=== PATIENT | male | born 1945 | race Caucasian/White ===

== ENCOUNTER 2023-10-26 06:57 | Emergency (ER) | payer MEDICARE, BC, SELFPAY ==
[2023-10-26 07:02] VITALS: BMI 37.5
[2023-10-26 07:07] VITALS: BP 171/102
[2023-10-26 07:17] VITALS: BP 157/84
[2023-10-26 08:06] LABS: % Basophils 0.1 % (0-2); % Immature Granulocytes 0.5 % (0-0.5); % Lymphocytes 5.1 % (20.5-51.1); % Monocytes 2.4 % (1.7-9.3); % Neutrophils 91.9 % (42.2-75.2); Absolute Immature Granulocytes 0.1 10^3/uL (0-0.05); Absolute Lymphocytes 0.9 10^3/uL (1.2-3.4); Absolute Monocytes 0.4 10^3/uL (0.1-0.6); Absolute Neutrophils 15.6 10^3/uL (1.4-6.5); Hematocrit 41.3 % (39.0-52.0); Hemoglobin 13.6 g/dL (13.0-18.0); Mean Corp Hgb Conc. 32.9 g/dL (33.0-37.0); Mean Corpuscular Hgb 31.1 pg (27.0-31.0); Mean Corpuscular Volume 94.5 fL (80.0-94.0); Nucleated Red Blood Cells % 0 % (-); Platelet Count 209 10^3/uL (130-400); Red Blood Cell Count 4.37 10^6/uL (4.70-6.10)
--- NOTE | 2023-10-26 08:17 | ED.GENMED ---
History of Present Illness
<KHADRA Joyce Jr. Last Filed: 10/26/23 13:20>
General
Chief Complaint: Dizziness
Source: patient, ambulance crew and [facility]
Exam Limitations: none
Time Seen by Provider: 10/26/23 07:08
Nursing documentation reviewed up to this point in time: agreed with
History of Present Illness
History of Present Illness:
78-year-old male past medical history of CHF hypertension of lipidemia, COPD presenting to the emergency department today with concerns of lightheadedness this morning upon awakening. He claims that he felt lightheaded then he ate ice cream had
slight improvement but ended up calling EMS and presenting to the ER. Denies shortness of breath chest pain nausea vomiting numbness weakness.
Past History
<Mason Cooney Jr., PA-C - Last Filed: 10/26/23 13:20>
Past History
ED Past Medical History: CHF, HTN, Hypercholesterolemia, Other (DARRON) and Other (chronic bilateral LE edema)
ED Past Surgical History: Cardiac (carotid endarterectomies)
Social History
Tobacco: Former smoker
Alcohol: None
Drug: None
Personal: Single
Living: alone ([facility])
Review of Systems
<KHADRA Joyce Jr. Last Filed: 10/26/23 13:20>
Review of Systems
Allergies reviewed?: Yes
All Other Systems: ROS reviewed and negative except as documented in HPI and ROS
Phy Exam
<KHADRA Joyce Jr. Last Filed: 10/26/23 13:20>
Physical Exam
Physical Exam:
GENERAL: Alert , in no apparent distress
EYE: pupils equal and reactive
NECK: Supple, no significant adenopathy.
ENT: o/p clr, mmm.
CARDIAC: Regular rate and rhythm .
LUNGS: Clear breath sounds bilaterally, no acute respiratory distress, no wheezes/rales/rhonchi
ABDOMEN: Soft, without focal tenderness, no r/g, no cvat
NEUROLOGICAL: Alert and oriented, no focal neuro deficits
SKIN: Warm and dry, skin intact.
MUSCULOSKELETAL: No edema, well perfused.
PSYCH: Normal and appropriate interaction.
Course
<Mason Cooney Jr., PA-C - Last Filed: 10/26/23 13:20>
Orders/Labs/Results
Orders:
Orders
10/26/23 07:02
Electrocardiogram (*1) Urgent
Reason for Study: Chest Pain
EKG- Treatment ONCE
IV Insert/Care/Rem.- Treatment PRN
10/26/23 07:29
CT Head W/o Iv Contrast Urgent
Comment:
Reason For Exam: lfalling to the left this AM
Ondansetron Injectable [Zofran] 4 mg IV NOW STA
Chest [CR Chest - 2 Views ] Urgent
Comment:
Reason For Exam: lightheaded, SOB
10/26/23 07:53
Complete Blood Count/With Diff Urgent
10/26/23 08:34
Comprehensive Metabolic Panel Urgent
NT-proBNP Urgent
Comment: ADD ON
Troponin I Urgent
Urinalysis Reflex To Culture Urgent
Date Specimen was Collected: 10/26/23
Time Specimen was Collected: 08:09
10/26/23 09:18
Add On- LAB Urgent
Tests Added?: bnp
10/26/23 12:32
Blood Culture Urgent
LORENA Source: Blood/Venous
Specimen Description:
Abnormal Lab Results
10/26/23 10/26/23
07:53 08:34
WBC 17.0 H 10^3/uL
(4.8-10.8)
RBC 4.37 L 10^6/uL
(4.70-6.10)
MCV 94.5 H fL
(80.0-94.0)
MCH 31.1 H pg
(27.0-31.0)
MCHC 32.9 L g/dL
(33.0-37.0)
MPV 12.0 H fL
(7.4-10.4)
Abs Immat Gran (auto) 0.1 H 10^3/uL
(0-0.05)
Absolute Neuts (auto) 15.6 H 10^3/uL
(1.4-6.5)
Absolute Lymphs (auto) 0.9 L 10^3/uL
(1.2-3.4)
Neutrophils % 91.9 H %
(42.2-75.2)
Lymphocytes % 5.1 L %
(20.5-51.1)
Chloride 91 L mmol/L
(98-107)
Carbon Dioxide 39 H mmol/L
(22-30)
BUN 34 H mg/dl
(9-20)
Glucose 160 H mg/dl
(70-99)
10/26/23 07:53
10/26/23 08:34
Vital Signs
Initial and Last Documented VS:
Initial Vital Signs
Resp
16
10/26/23 07:02
Last Documented Vital Signs
Temp Pulse Resp BP Pulse Ox
97.6 F 80 21 133/87 98
10/26/23 07:07 10/26/23 12:30 10/26/23 07:45 10/26/23 12:01 10/26/23 13:00
<Gera Zapata, - Last Filed: 10/26/23 11:36>
Orders/Labs/Results
Orders:
Orders
10/26/23 07:02
Electrocardiogram (*1) Urgent
Reason for Study: Chest Pain
EKG- Treatment ONCE
IV Insert/Care/Rem.- Treatment PRN
10/26/23 07:29
CT Head W/o Iv Contrast Urgent
Comment:
Reason For Exam: lfalling to the left this AM
Ondansetron Injectable [Zofran] 4 mg IV NOW STA
Chest [CR Chest - 2 Views ] Urgent
Comment:
Reason For Exam: lightheaded, SOB
10/26/23 07:53
Complete Blood Count/With Diff Urgent
10/26/23 08:34
Comprehensive Metabolic Panel Urgent
NT-proBNP Urgent
Comment: ADD ON
Troponin I Urgent
Urinalysis Reflex To Culture Urgent
Date Specimen was Collected: 10/26/23
Time Specimen was Collected: 08:09
10/26/23 09:18
Add On- LAB Urgent
Tests Added?: bnp
10/26/23 12:32
Blood Culture Urgent
LORENA Source: Blood/Venous
Specimen Description:
Abnormal Lab Results
10/26/23 10/26/23
07:53 08:34
WBC 17.0 H 10^3/uL
(4.8-10.8)
RBC 4.37 L 10^6/uL
(4.70-6.10)
MCV 94.5 H fL
(80.0-94.0)
MCH 31.1 H pg
(27.0-31.0)
MCHC 32.9 L g/dL
(33.0-37.0)
MPV 12.0 H fL
(7.4-10.4)
Abs Immat Gran (auto) 0.1 H 10^3/uL
(0-0.05)
Absolute Neuts (auto) 15.6 H 10^3/uL
(1.4-6.5)
Absolute Lymphs (auto) 0.9 L 10^3/uL
(1.2-3.4)
Neutrophils % 91.9 H %
(42.2-75.2)
Lymphocytes % 5.1 L %
(20.5-51.1)
Chloride 91 L mmol/L
(98-107)
Carbon Dioxide 39 H mmol/L
(22-30)
BUN 34 H mg/dl
(9-20)
Glucose 160 H mg/dl
(70-99)
10/26/23 07:53
10/26/23 08:34
Vital Signs
Initial and Last Documented VS:
Initial Vital Signs
Resp
16
10/26/23 07:02
Last Documented Vital Signs
Temp Pulse Resp BP Pulse Ox
97.6 F 80 21 133/87 98
10/26/23 07:07 10/26/23 12:30 10/26/23 07:45 10/26/23 12:01 10/26/23 13:00
<Mason Cooney Jr., PA-C - Last Filed: 10/26/23 13:20>
MDM/Problems Addressed
MDM/Problems Addressed:
78-year-old male presenting to the emergency department today with concerns of lightheadedness upon awakening this morning. Never fully passed out no associated chest pain shortness of breath or palpitations. Upon arrival blood pressure is
elevated otherwise vital signs are normal. Patient is asymptomatic at rest. Here patient had a drink and did feel somewhat improved symptoms. Initial blood pressure was elevated but improved without specific treatment. Patient does of a white
count of 17 with no obvious specific symptoms. Blood culture was sent but otherwise patient appears stable for discharge. Otherwise troponin negative urinalysis normal head CT without emergent findings chest x-ray without emergent findings.
Patient given strict return precautions otherwise.
<Mason Cooney Jr., PA-C - Last Filed: 10/26/23 13:20>
*Critical Care Note
Total Time (30-74mins, 75-104mins- exclusive of procedures): Not Applicable
ED Attending Note
<Mason Cooney Jr. PAMelinda - Last Filed: 10/26/23 13:20>
-
Portions of this chart may have been created with voice recognition software.� Occasional wrong word or��sound alike� substitutions may have occurred due to the inherent limitations of voice recognition software.
<Gera Zapata DO - Last Filed: 10/26/23 11:36>
ED Attending Note
Patient seen and examined by attending physician: Yes
I performed the substantive portion of visit, reviewed & personally made and approve the management plan that is documented in note by myself or ZAINAB.: Yes
Discharge Plan
Departure
Patient Disposition: Home (Routine Discharge)
Date of Disposition: 10/26/23
Time of Disposition: 13:19
Patient with high blood pressure during this ER visit?: No
Condition: Good
Covid-19: Not Applicable
Discharge Problem:
Dizziness
Instructions: Dizziness, Nonvertigo, (DC)
Prescriptions:
No Action
multivitamin 1 EACH tablet
1 ea PO DAILY
furosemide 80 MG tablet
80 mg PO BID
cholecalciferol (vitamin D3) 1,000 UNITS tablet
1,000 units PO DAILY
Lumigan 1 DROP drops
1 drp BOTH EYES HS
cyclobenzaprine 10 mg Tablet
10 mg PO BID PRN (Reason: muscle spasms)
bupropion HCl 150 mg Tablet Sustained-Release 12 Hr
150 mg PO BID
pravastatin 40 mg Tablet
40 mg PO DAILY
duloxetine 60 mg Capsule,Delayed Release(Dr/Ec)
60 mg PO DAILY
docusate sodium 100 mg Capsule
100 mg PO BID Qty: 0 0RF
polyethylene glycol 3350 17 gram Powder In Packet
17 g PO DAILY Qty: 0 0RF
pantoprazole 40 mg Tablet,Delayed Release (Dr/Ec)
40 mg PO DAILY Qty: 30 0RF
Referrals:
Pedro Drew MD [Family Provider] -
Activity Restrictions/Additional Instructions:
You came to the emergency department today with concerns of lightheadedness and dizziness. Here you to reassuring assessment. Please follow closely with the primary care doctor. Return to the emergency department for any worsening, new or
concerning symptoms.
Interventions
Interventions:
*Risk Screen - Suicide Last Done: 10/26/23 07:02
*General Assessment Last Done: 10/26/23 07:02
*Neglect/Abuse Screening Last Done: 10/26/23 07:02
ED- Fall Risk Assessment Last Done: 10/26/23 07:02
*ED COVID-19 Vaccine History Last Done: 10/26/23 07:02
ED- Neurological Assessment Last Done: 10/26/23 07:02
Discharge Date and Time
Print Language: NIGERIEN
[2023-10-26 09:03] LABS: ALT (SGPT) 15 U/L (0-50); AST (SGOT) 24 U/L (17-59); Albumin 4.6 g/dl (3.5-5.0); Alkaline Phosphatase 76 U/L (38-126); Blood Urea Nitrogen 34 mg/dl (9-20); Calcium 9.3 mg/dl (8.4-10.2); Chloride 91 mmol/L (98-107); Estimated Creatinine Clearance 76 ml/min; Glucose 160 mg/dl (70-99); Potassium 3.8 mmol/L (3.5-5.1); Sodium 140 mmol/L (135-145); Total Bilirubin 0.4 mg/dl (0.2-1.3); Total Protein 7.2 g/dl (6.3-8.2); eGFR > 60.00
[2023-10-26 09:15] LABS: Troponin I 0.031 ng/ml
[2023-10-26 09:22] LABS: Urine Albumin Negative (Neg - Trace); Urine Bilirubin Negative (Negative); Urine Character Clear (Clear); Urine Color Yellow; Urine Glucose Negative (Negative); Urine Ketone Negative (Negative); Urine Leukocyte Negative (Negative); Urine Nitrite Negative (Negative); Urine Occult Blood Negative (Negative); Urine Specific Gravity 1.015 (<1.030); Urine Urobilinogen Negative (Neg - 1+)
[2023-10-26 09:37] LABS: Carbon Dioxide 39 mmol/L (22-30)
[2023-10-26 10:00] VITALS: BP 132/86
[2023-10-26 10:08] LABS: NT-proBNP 1050 pg/ml
[2023-10-26 10:25] VITALS: BP 142/68
[2023-10-26 11:00] VITALS: BP 129/59
[2023-10-26 12:01] VITALS: BP 133/87
== END 2023-10-26 13:34 | disposition home or self-care (01) ==
LOC: EMR 06:57
PROVIDERS: Physician Assistant; EMERGENCY PHYSICIAN Emergency Medicine; FAMILY PHYSICIAN Internal Medicine
DX: R42 Dizziness and giddiness (principal); I11.0 Hypertensive heart disease with heart failure; I50.9 Heart failure, unspecified; E78.00 Pure hypercholesterolemia, unspecified; J44.9 Chronic obstructive pulmonary disease, unspecified; G47.33 Obstructive sleep apnea (adult) (pediatric); Z87.891 Personal history of nicotine dependence
CPT/HCPCS: 99284; 70450; 71046; 80053; 81003; 83880; 84484; 85025; 87040; 93005

== ENCOUNTER 2023-11-30 16:34 | Emergency (ER) | payer MEDICARE, BC, SELFPAY ==
[2023-11-30 16:42] VITALS: BP 122/73
--- NOTE | 2023-11-30 17:08 | ED.GENMED ---
History of Present Illness
General
Chief Complaint: Weakness
Source: patient and other (good friend Connor who lives down the street at bedside providing some history)
Exam Limitations: none
Time Seen by Provider: 11/30/23 17:01
Nursing documentation reviewed up to this point in time: agreed with
History of Present Illness
History of Present Illness:
78 yo male with h/o COPD on home O2 2-3 L, CHF, HTN, HLD, GERD presents for 3 days of general weakness, fatigue, nausea, friend states 'he's been falling off to sleep a lot.' Pt denies CP or SOB. Denies abdominal pain. He denies feeling nauseous at
this time, he has had no vomiting. Dneies fever/chills. Has had no diarrhea past 2 days. Has occasional diarrhea
Saw PCP [employer] today and sent here for evaluation
Past History
Past History
ED Past Medical History: CHF, COPD, HTN, Hypercholesterolemia, Other (DARRON) and Other (chronic bilateral LE edema)
ED Past Surgical History: Cardiac (carotid endarterectomies) and Orthopedic
Social History
Tobacco: Former smoker
Alcohol: None
Drug: None
Personal: Single
Living: alone ([facility]. Living)
Review of Systems
Review of Systems
Allergies reviewed?: Yes
All Other Systems: ROS reviewed and negative except as documented in HPI and ROS
Constitutional: Reports fatigue; Denies fever
EENT: Denies sore throat
Respiratory: Denies cough or trouble breathing
Cardiac: Denies chest pain
ABD/GI: Reports nausea, diarrhea (occasional ) and anorexia; Denies abdominal pain, vomiting, bloody stools or black stools
: Denies dysuria, frequency, difficulty voiding or urgency
Musculoskeletal: Reports edema
Skin: Reports no symptoms
Neurological: Reports no symptoms
Phy Exam
Physical Exam
Physical Exam:
GENERAL: No acute distress. A&Ox3.
CONSTITUTIONAL: Afebrile.
EYES: PERRL, conjunctivae normal
ENMT: moist mucus membranes, Pharynx nl
RESPIRATORY: Regular respirations, nonlabored, lungs clear.
CARDIOVASCULAR: Regular rate and rhythm, no murmurs, no rubs.
GI: Soft, nontender, normal BS
MUSCULOSKELETAL: Moves with ease. Well perfused.
SKIN: Warm, dry, pale
PSYCH:Depressed mood and affect. Well kept, interactive and appropriate
NEUROLOGIC: Awake, alert and oriented. No focal neurological deficits
Course
Orders/Labs/Results
Orders:
Orders
11/30/23 16:46
Electrocardiogram (*1) Urgent
Reason for Study: Other
Other Reason for Exam: Respiratory Distress
EKG- Treatment ONCE
CR Chest - 2 Views Urgent
Comment:
Reason For Exam: respiratory distress
11/30/23 17:09
COVID-19 Antigen Urgent
Source: Nasal Swab
Influenza A+B Rapid Molecular Urgent
LORENA Source: Nasal Swab
Specimen Description:
11/30/23 17:16
Basic Metabolic Panel Urgent
Complete Blood Count/With Diff Urgent
NT-proBNP Urgent
Troponin I Urgent
11/30/23 18:30
Urinalysis Reflex To Culture Urgent
Date Specimen was Collected: 11/30/23
Time Specimen was Collected: 18:29
Abnormal Lab Results
11/30/23
17:16
RBC 4.05 L 10^6/uL
(4.70-6.10)
Hgb 12.3 L g/dL
(13.0-18.0)
Hct 38.7 L %
(39.0-52.0)
MCV 95.6 H fL
(80.0-94.0)
MCHC 31.8 L g/dL
(33.0-37.0)
MPV 11.0 H fL
(7.4-10.4)
Neutrophils % 76.3 H %
(42.2-75.2)
Lymphocytes % 15.1 L %
(20.5-51.1)
Chloride 86 L mmol/L
(98-107)
Carbon Dioxide 36 H mmol/L
(22-30)
Glucose 101 H mg/dl
(70-99)
11/30/23 17:16
11/30/23 17:16
Vital Signs
Initial and Last Documented VS:
Initial Vital Signs
Temp Pulse Resp BP Pulse Ox
97.7 F 73 16 122/73 96
11/30/23 16:42 11/30/23 16:42 11/30/23 16:42 11/30/23 16:42 11/30/23 16:42
Last Documented Vital Signs
Temp Pulse Resp BP Pulse Ox
97.7 F 84 22 119/89 96
11/30/23 16:42 11/30/23 18:15 11/30/23 18:15 11/30/23 18:25 11/30/23 18:15
MDM/Problems Addressed
Differential Diagnosis Includes:
Covid, dehydration, CHF, viral illness
MDM/Problems Addressed:
78 yo male with h/o COPD on home O2 2-3 L, CHF, HTN, HLD, GERD presents for 3 days of general weakness, fatigue, nausea, friend states 'he's been falling off to sleep a lot.' Pt denies CP or SOB. Denies abdominal pain. He denies feeling nauseous at
this time, he has had no vomiting. Dneies fever/chills. Has had no diarrhea past 2 days. Has occasional diarrhea
Saw PCP [employer] today and sent here for evaluation
VS normal. NAD
6:15 p.m.
CBC unremarkable.
CMP with no clinically significant abnormality
Chest x-ray radiology report read: IMPRESSION:
Cardiomegaly without associated pulmonary edema
Results discussed with patient, reassured nothing worrisome in w/u
Friend at bedside states he's much more animated than earlier
Pt states he is comfortable going home.
*Critical Care Note
Total Time (30-74mins, 75-104mins- exclusive of procedures): Not Applicable
ED Attending Note
-
Portions of this chart may have been created with voice recognition software.� Occasional wrong word or��sound alike� substitutions may have occurred due to the inherent limitations of voice recognition software.
Discharge Plan
Departure
Patient Disposition: Home (Routine Discharge)
Date of Disposition: 11/30/23
Time of Disposition: 18:22
Patient with high blood pressure during this ER visit?: No
Condition: Good
Discharge Problem:
Generalized weakness
Instructions: Generalized Weakness (DC)
Prescriptions:
No Action
multivitamin 1 EACH tablet
1 ea PO DAILY
furosemide 80 MG tablet
80 mg PO BID
cholecalciferol (vitamin D3) 1,000 UNITS tablet
1,000 units PO DAILY
Lumigan 1 DROP drops
1 drp BOTH EYES HS
cyclobenzaprine 10 mg Tablet
10 mg PO BID PRN (Reason: muscle spasms)
bupropion HCl 150 mg Tablet Sustained-Release 12 Hr
150 mg PO BID
pravastatin 40 mg Tablet
40 mg PO DAILY
duloxetine 60 mg Capsule,Delayed Release(Dr/Ec)
60 mg PO DAILY
docusate sodium 100 mg Capsule
100 mg PO BID Qty: 0 0RF
polyethylene glycol 3350 17 gram Powder In Packet
17 g PO DAILY Qty: 0 0RF
pantoprazole 40 mg Tablet,Delayed Release (Dr/Ec)
40 mg PO DAILY Qty: 30 0RF
Referrals:
Pedro Drew MD [Family Provider] - Follow up in 5-7 days
UNKNOWN - PT DOES,NOT KNOW [Unknown Provider] -
Activity Restrictions/Additional Instructions:
As we discussed, nothing worrisome in your workup here today.
You may simply have a viral illness that should pass within the next several days.
See your doctor next week for recheck if you are not a lot better by then
Interventions
Interventions:
*Risk Screen - Suicide Last Done: 11/30/23 16:42
*General Assessment Last Done: 11/30/23 17:01
*Neglect/Abuse Screening Last Done: 11/30/23 17:01
ED- Fall Risk Assessment Last Done: 11/30/23 18:37
*ED COVID-19 Vaccine History Last Done: 11/30/23 17:01
*Nursing Disposition Last Done: 11/30/23 18:37
ED- Cardiac Assessment Last Done: 11/30/23 17:02
ED- Neurological Assessment Last Done: 11/30/23 17:02
ED- Pulmonary Assessment Last Done: 11/30/23 17:02
Discharge Date and Time
Discharge Date/Time: 11/30/23 18:37
Print Language: COMORAN
[2023-11-30 17:42] LABS: % Basophils 0.2 % (0-2); % Eosinophils 1.4 % (0-6); % Immature Granulocytes 0.4 % (0-0.5); % Lymphocytes 15.1 % (20.5-51.1); % Monocytes 6.6 % (1.7-9.3); % Neutrophils 76.3 % (42.2-75.2); Absolute Eosinophils 0.1 10^3/uL (0-0.7); Absolute Lymphocytes 1.3 10^3/uL (1.2-3.4); Absolute Monocytes 0.6 10^3/uL (0.1-0.6); Absolute Neutrophils 6.4 10^3/uL (1.4-6.5); Hematocrit 38.7 % (39.0-52.0); Hemoglobin 12.3 g/dL (13.0-18.0); Mean Corp Hgb Conc. 31.8 g/dL (33.0-37.0); Mean Corpuscular Hgb 30.4 pg (27.0-31.0); Mean Corpuscular Volume 95.6 fL (80.0-94.0); Nucleated Red Blood Cells % 0 % (-); Platelet Count 154 10^3/uL (130-400); Red Blood Cell Count 4.05 10^6/uL (4.70-6.10); Red Cell Dist. Width 12.7 % (11.5-14.5); White Blood Cell Count 8.3 10^3/uL (4.8-10.8)
[2023-11-30 17:46] LABS: COVID-19 Antigen Negative (Negative)
[2023-11-30 17:49] LABS: Blood Urea Nitrogen 16 mg/dl (9-20); Calcium 8.9 mg/dl (8.4-10.2); Chloride 86 mmol/L (98-107); Glucose 101 mg/dl (70-99); NT-proBNP 996 pg/ml; Sodium 136 mmol/L (135-145); Troponin I 0.016 ng/ml; eGFR > 60.00
[2023-11-30 17:55] LABS: Carbon Dioxide 36 mmol/L (22-30)
[2023-11-30 18:25] VITALS: BP 119/89
[2023-11-30 18:39] LABS: Urine Albumin Negative (Neg - Trace); Urine Bilirubin Negative (Negative); Urine Character Clear (Clear); Urine Color Yellow; Urine Glucose Negative (Negative); Urine Ketone Negative (Negative); Urine Leukocyte Negative (Negative); Urine Nitrite Negative (Negative); Urine Occult Blood Negative (Negative); Urine Urobilinogen Negative (Neg - 1+)
== END 2023-11-30 18:37 | disposition home or self-care (01) ==
LOC: EMR 16:34
PROVIDERS: Emergency Medicine; Registered Nurse; EMERGENCY PHYSICIAN Emergency Medicine; FAMILY PHYSICIAN Internal Medicine
DX: R53.1 Weakness (principal); J44.9 Chronic obstructive pulmonary disease, unspecified; I11.0 Hypertensive heart disease with heart failure; I50.9 Heart failure, unspecified; E78.00 Pure hypercholesterolemia, unspecified; G47.33 Obstructive sleep apnea (adult) (pediatric); K21.9 Gastro-esophageal reflux disease without esophagitis; Z87.891 Personal history of nicotine dependence; Z99.81 Dependence on supplemental oxygen
CPT/HCPCS: 99283; 71046; 80048; 81003; 83880; 84484; 85025; 87502; 87811; 93005

== ENCOUNTER 2024-01-19 22:08 | Inpatient (IN) | payer MEDICARE, BC, SELFPAY ==
[2024-01-19] VITALS (8 sets, daily range): BP systolic 122–163; BP diastolic 63–97; BMI 39.0; BMI 38.5
--- NOTE | 2024-01-19 19:13 | ED.GENMED ---
History of Present Illness
General
Chief Complaint: Chest Pain
Source: patient and ambulance crew
Exam Limitations: none
Time Seen by Provider: 01/19/24 19:13
Nursing documentation reviewed up to this point in time: agreed with
History of Present Illness
History of Present Illness:
Patient with history of oxygen dependent COPD, presents to emergency department secondary to multiple episodes of lightheadedness associated with near syncope, when he stood up from sitting position this evening. Denies loss of consciousness.
Denies falling down. Denies any injuries. Denies headache. Denies preceding palpitations or shortness of breath. Denies nausea or vomiting. Patient states that he has had number of similar episodes in the past, but does not know why. In
addition, patient states that his legs are more swollen than usual, despite switching his diuretic from Lasix to Bumex. Patient also is currently being treated for left lower leg infection, and was started on clindamycin yesterday. Denies fever or
chills. Patient has had previous skin infection, treated with antibiotics. Lastly, patient states that he did experienced choking/chest pain while he was eating, which resolved shortly afterwards, as his food finally went down to his stomach.
Past History
Past History
ED Past Medical History: CHF, COPD, HTN, Hypercholesterolemia, Other (DARRON) and Other (chronic bilateral LE edema)
ED Past Surgical History: Cardiac (carotid endarterectomies) and Orthopedic
Social History
Tobacco: Former smoker
Alcohol: None
Drug: None
Personal: Single
Living: alone ([facility])
Review of Systems
Review of Systems
Allergies reviewed?: Yes
All Other Systems: ROS reviewed and negative except as documented in HPI and ROS
Constitutional: Reports no symptoms
EENT: Reports no symptoms
Respiratory: Reports no symptoms; Denies trouble breathing
Cardiac: Reports no symptoms; Denies chest pain, diaphoresis or palpitations
ABD/GI: Reports no symptoms; Denies abdominal pain, nausea or vomiting
: Reports no symptoms
Musculoskeletal: Reports edema
Skin: Reports other (Leg redness with swelling)
Neurological: Reports no symptoms
Phy Exam
Physical Exam
Physical Exam:
Physical Exam
General: mild distress, not acutely ill. obese. afebrile
Head: nc/at. eomi
Neck: supple. no meningeal signs.
Heart: s1/s2 regular rate and rhythm, no murmur. equal radial pulses.
Lungs: no acute respiratory distress. diminished breath sounds bilaterally
Abdomen: normal bowel sounds. not tender.
Neuro: alert and oriented. no focal neurological deficits
Skin: no rash
Psychiatric: well kept. interactive and cooperative
Extremities: LE b/l edema. LLE erythema noted with mild warmth, without open drainage
Scores
Heart Score for Chest Pain Patients
STEMI patient?: Not applicable
Course
Orders/Labs/Results
Orders:
Orders
01/19/24 Lunch
Cholesterol Lowering
At Your Request: Full Participation
Does patient need a safe tray?: No
Fluid Restriction: 1440 mL/day (48 oz)
Cholesterol Lowering: Sodium, 2 Gram
01/19/24 19:06
Electrocardiogram (*1) Urgent
Reason for Study: Chest Pain
EKG- Treatment ONCE
01/19/24 19:27
BNP [NT-proBNP] Urgent
Complete Blood Count/With Diff Urgent
Comprehensive Metabolic Panel Urgent
Troponin I Urgent
01/19/24 19:42
CR Chest - 2 Views Urgent
Comment:
Reason For Exam: sob/swelling/hypoxia
US Legs, Left [US Periph Venous LOWER Ext LT] Urgent
Comment:
Reason For Exam: LLE swelling/erythema
01/19/24 20:47
Furosemide [Lasix] 60 mg IV NOW STA
01/19/24 21:13
Vancomycin [Vancocin] 2,000 mg 0.9% Sodium Chloride 500 ml [Nss] 500 ml IV NOW
01/19/24 21:37
CeFAZolin 2 GRAM [Ancef] 2 grams in 10 ml IV NOW
01/19/24 21:46
Admit/Transfer Patient As Directed
Co-Sign Provider:
Level of Care: Inpatient admission
Assign to:: Telemetry
Physician / Group: Milagros Lacy
Diagnosis: LLE Cellulitis, Heart Failure
Reason for Telemetry: Pulmonary Edema
Date to Stop Telemetry: 01/22/24
Time to Stop Telemetry: 11:00
Reason for Hospitalization: LLE Cellulitis, Heart Failure
Expected length of stay greater than two midnights?: Yes
ELOS- Estimated Length of Stay in days: 3
I certify the patient meets the requirements for IP care: Yes
PRN Pain Medication Management As Directed
May give lesser potent ordered pain med per pt: Yes
preference::
Protocol:: Medication orders for pain may be administered in a
manner that supports deferring to patient preference
when the pt is:
- Requesting an ordered lesser potent pain medication.
Least to most potent pain medications are defined
as: acetaminophen < NSAID < tramadol < opioids
(morphine, oxycodone, hydromorphone).
- Requesting a lesser dose of the same medication IF
ORDERED.
- Requesting a less intrusive route of administration
if both routes are prescribed by the provider (PO <
IV).
01/19/24 21:49
Code Status As Directed
Resuscitation Status: Do not resuscitate
Reached after discussion with pt or family/Healthcare POA: Yes
01/19/24 21:50
DNR Bracelet Application ONCE
01/19/24 22:38
Acetaminophen [Tylenol] 1,000 mg PO HS
Bupropion Regular Release [Wellbutrin Regular Release] 100 mg PO BID
Enoxaparin Sodium [Lovenox] 40 mg SC QPM
01/19/24 22:38
HF DIETARY CONSULT Routine
HF EDUCATOR CONSULT Routine
Comment:
Activity As Directed
Activity Level: As Tolerated
Intake/ Output As Directed
Frequency: Per unit guidelines
Orthostatic Vital Signs As Directed
Orthostatic VS Frequency: Daily
Patient Education As Directed
Type: CHF folder
Comment: give on admission. Document in Interdisciplinary Education record
Sleep Apnea Assessment by RN As Directed
Comment:
Physician Instructions:
Vital Signs As Directed
Frequency: Other
Additional Instructions:: Q12 or per unit guidelines if more frequent.
Weight As Directed
Frequency: Daily
Type of Scale: Standing Scale
Comment: Daily morning weight. If unable to stand, use balanced bed scale.
Weight As Directed
Frequency: Once
Type of Scale: Standing Scale
Comment: Upon Admission. If unable to stand, use balanced bed scale.
Pulse Ox/cont/shift [RESP] Routine
Quantity: 1
Special Instructions: Daily pulse oximetry at rest. If greater than 92% at rest also obtain pulse oximetry
while ambulating as tolerated.
OT Consult [Ot Eval And Treat] Routine
Ot Eval And Treat Routine
Physical Therapy Consult [Pt Eval And Treat] Routine
Activity Level: As Tolerated
Pt Eval And Treat Routine
Activity Level: As Tolerated
DX Deep Vein Thrombosis Video Routine
01/20/24 05:00
CeFAZolin 2 GRAM [Ancef] 2 grams in 10 ml IV Q8H
01/20/24 06:00
Echo 2D MMode Doppler [Echo 2D MMode Color/Doppler] IN AM
Reason for Study: heart failure
Basic Metabolic Panel IN AM
Complete Blood Count/No Diff IN AM
Magnesium IN AM
TSH Reflex To Free T4 IN AM
01/20/24 08:00
Duloxetine Delayed Release [Cymbalta Delayed Release] 20 mg PO DAILY
Furosemide [Lasix] 60 mg IV BID AT 0800,1600
Rosuvastatin Calcium [Crestor] 20 mg PO DAILY
Tiotropium [place] 2.5 Mcg [Spiriva Respimat 2.5 Mcg] 2 puff INH R DAILY
01/21/24 06:00
Basic Metabolic Panel IN AM
01/22/24 06:00
Basic Metabolic Panel IN AM
01/22/24 11:00
DC Protocol for Telemetry ONCE
Abnormal Lab Results
01/19/24
19:27
RBC 4.38 L 10^6/uL
(4.70-6.10)
MCV 99.3 H fL
(80.0-94.0)
MCHC 30.6 L g/dL
(33.0-37.0)
MPV 10.8 H fL
(7.4-10.4)
Absolute Neuts (auto) 7.1 H 10^3/uL
(1.4-6.5)
Absolute Monos (auto) 0.7 H 10^3/uL
(0.1-0.6)
Lymphocytes % 15.2 L %
(20.5-51.1)
Chloride 83 L mmol/L
(98-107)
Carbon Dioxide 39 H mmol/L
(22-30)
BUN 22 H mg/dl
(9-20)
Glucose 119 H mg/dl
(70-99)
01/19/24 19:27
01/19/24 19:27
Vital Signs
Initial and Last Documented VS:
Initial Vital Signs
Temp Pulse Resp BP Pulse Ox
98.2 F 102 20 159/63 98
01/19/24 19:01 01/19/24 19:01 01/19/24 19:01 01/19/24 19:01 01/19/24 19:01
Last Documented Vital Signs
Temp Pulse Resp BP Pulse Ox
97.9 F 98 18 150/89 94
01/19/24 23:13 01/19/24 23:13 01/19/24 23:13 01/19/24 23:13 01/19/24 23:13
MDM/Problems Addressed
MDM/Problems Addressed:
History and exam consistent with likely left lower leg cellulitis, along with significant fluid retention, despite outpatient diuretics. Ultrasound without any evidence of DVT. Patient will be admitted for IV antibiotics and IV diuretics.
Presyncopal episodes, likely multifactorial, including immobility as well as degree of orthostasis.
*EKG
Interpreted by ED Provider?: Yes
EKG Intrepretation Date: 01/19/24
Heart Rate: 94
Rate: normal
Rhythm: sinus and PVC's
QRS Pattern: right bundle branch block
*Critical Care Note
Total Time (30-74mins, 75-104mins- exclusive of procedures): Not Applicable
ED Attending Note
-
Portions of this chart may have been created with voice recognition software.� Occasional wrong word or��sound alike� substitutions may have occurred due to the inherent limitations of voice recognition software.
Discharge Plan
Departure
Patient Disposition: Admit
Date of Disposition: 01/19/24
Time of Disposition: 20:47
Admit to: Telemetry
Presentation/result/management discussed w/ accepting MD/DO: Hospitalist
Discharge Problem:
Near syncope, Cellulitis, Fluid overload
Interventions
Interventions:
*Risk Screen - Suicide Last Done: 01/19/24 23:24
*General Assessment Last Done: 01/19/24 19:15
*Neglect/Abuse Screening Last Done: 01/19/24 19:16
*ED COVID-19 Vaccine History Last Done: 01/19/24 23:24
*Nursing Disposition Last Done: 01/19/24 22:33
ED- Cardiac Assessment Last Done: 01/19/24 19:30
Discharge Date and Time
Discharge Date/Time: 01/19/24 22:33
[2024-01-19 19:33] LABS: % Basophils 0.4 % (0-2); % Eosinophils 1.8 % (0-6); % Immature Granulocytes 0.3 % (0-0.5); % Lymphocytes 15.2 % (20.5-51.1); % Monocytes 7.1 % (1.7-9.3); % Neutrophils 75.2 % (42.2-75.2); Absolute Eosinophils 0.2 10^3/uL (0-0.7); Absolute Lymphocytes 1.4 10^3/uL (1.2-3.4); Absolute Monocytes 0.7 10^3/uL (0.1-0.6); Absolute Neutrophils 7.1 10^3/uL (1.4-6.5); Hematocrit 43.5 % (39.0-52.0); Hemoglobin 13.3 g/dL (13.0-18.0); Mean Corp Hgb Conc. 30.6 g/dL (33.0-37.0); Mean Corpuscular Hgb 30.4 pg (27.0-31.0); Mean Corpuscular Volume 99.3 fL (80.0-94.0); Mean Platelet Volume 10.8 fL (7.4-10.4); Nucleated Red Blood Cells % 0 % (-); Platelet Count 153 10^3/uL (130-400); Red Blood Cell Count 4.38 10^6/uL (4.70-6.10); Red Cell Dist. Width 13.7 % (11.5-14.5); White Blood Cell Count 9.4 10^3/uL (4.8-10.8)
[2024-01-19 19:54] LABS: NT-proBNP 1360 pg/ml; Troponin I 0.026 ng/ml
[2024-01-19 19:57] LABS: ALT (SGPT) 16 U/L (0-50); AST (SGOT) 36 U/L (17-59); Albumin 4.8 g/dl (3.5-5.0); Alkaline Phosphatase 73 U/L (38-126); Blood Urea Nitrogen 22 mg/dl (9-20); Chloride 83 mmol/L (98-107); Estimated Creatinine Clearance 75 ml/min; Glucose 119 mg/dl (70-99); Potassium 4.5 mmol/L (3.5-5.1); Sodium 141 mmol/L (135-145); Total Bilirubin 0.8 mg/dl (0.2-1.3); Total Protein 7.9 g/dl (6.3-8.2); eGFR > 60.00
[2024-01-19 20:00] LABS: Carbon Dioxide 39 mmol/L (22-30)
--- NOTE | 2024-01-19 21:03 | HPS.HSE ---
Family Physician
-
Family Physician: Pedro Drew
Chief Complaint
-
near syncope
History of Present Illness
Mr. Pedro Mota is a 78 yo man with hx HTN, obesity, DARRON, COPD with chronic respiratory failure on 3L, HLD, HFpEF, GERD, Anxiety, carotis stenosis s/p bilateral CEA presents to the ER with multiple episodes of lightheadedness when going from
a seated to standing position this evening.
Patient reports getting up twice and feeling dizzy, having to sit down. He is concerned because his lower extremities feel very swollen and heavy. His left leg is erythematous and he was started on Clindamycin for it yesterday. He was also
transitioned from Lasix to Bumex yesterday.
No fevers/chills. No chest pain or shortness of breath. No abdominal pain. No nausea/vomiting.
Patient lives at home alone and gets around with a walker.
Medical History
Past Medical History
Past Medical History: Reports COPD (Ex-smoker, hypercarbia chronic), GERD (esophagitis ), HTN, Hypercholesterolemia, Psychiatric (anxiety ) and Other (chronic back pain , carotid stenosis , glaucoma, fibromyalgia)
Past Surgical History: Reports Other (Carotid stenosis-bilateral CEA)
Social History
Tobacco: Former Smoker
Alcohol: None
Drug: None
Personal: Single
Living: Other ([facility] 1 bedroom apartment in building )
Family History
Family History: Not pertinent
Allergies / Home Medications
Allergies reflects when Allergies were last updated in [facility].
Home Medications with original date entered in [facility]
Allergy/Medication List:
Allergies
Allergy/AdvReac Type Severity Reaction Status Date / Time
aspirin Allergy Rash Verified 01/19/24 19:14
ciprofloxacin [From Cipro] Allergy Rash Verified 01/19/24 19:14
ciprofloxacin HCl Allergy Rash Verified 01/19/24 19:14
[From Cipro]
gabapentin Allergy Hives Verified 01/19/24 19:14
Penicillins Allergy Rash Verified 01/19/24 19:14
Sulfa (Sulfonamide Allergy Unknown Verified 01/19/24 19:14
Antibiotics)
Home Medications
cholecalciferol (vitamin D3) 25 mcg (1,000 unit) tablet 1,000 units PO DAILY Supplement 07/10/16
acetaminophen 500 mg tablet (Tylenol Extra Strength) 1,000 mg PO HS 01/19/24
bumetanide 2 mg tablet 2 mg PO BID 01/19/24
bupropion HCl 100 mg tablet 100 mg PO BID 01/19/24
duloxetine 20 mg capsule,delayed release 20 mg PO DAILY 01/19/24
rosuvastatin 20 mg tablet 20 mg PO DAILY 01/19/24
therapeutic multivitamin 1 tab PO DAILY 01/19/24
umeclidinium 62.5 mcg-vilanterol 25 mcg/actuation powdr for inhalation (Anoro Ellipta) 1 inh inhalation R DAILY 01/19/24
Review of Systems
-
History Source: Patient
A 12 point ROS was completed and negative except as noted: Yes
Physical Exam
Vital Signs
Vital Signs
Temp Pulse Resp BP Pulse Ox
98.2 F 89 26 159/63 98
01/19/24 19:01 01/19/24 19:30 01/19/24 19:30 01/19/24 19:01 01/19/24 19:30
Physical Exam
General: No Apparent Distress and Conversant
HEENT: PERRLA
Respiratory: Clear; No Wheezes
Cardiac: S1/S2 and Regular Rhythm
GI: Soft and Non Tender
Musculoskeletal: Other (significant bilateral LE edema with area of erythema and warmth on left medial faustin )
Skin: Warm and Dry; No Rash
Neuro: AO x 3
Psych: Calm
Laboratory Results
-
01/19/24 19:27
01/19/24 19:27
Laboratory Results
Total Bilirubin 0.8 mg/dl (0.2-1.3) 01/19/24 19:27
AST 36 U/L (17-59) 01/19/24 19:
ALT 16 U/L (0-50) 01/19/24 19:27
Alkaline Phosphatase 73 U/L (38-126) 01/19/24 19:
Troponin I 0.026 ng/ml 01/19/24 19:
Data Reviewed
-
Diagnostic Radiology: Report Reviewed by me
Lab Data: Labs Reviewed by me
Impression/Plan
-
Mr. Pedro Mota is a 78 yo man with hx HTN, obesity, DARRON, COPD with chronic respiratory failure on 3L, HLD, HFpEF, GERD, Anxiety, carotid stenosis s/p bilateral CEA presents to the ER with multiple episodes of lightheadedness when going from
a seated to standing position this evening. He was started on antibiotics for LLE cellulitis yesterday and is found to be volume overloaded on exam.
Triage VS: T 98.2, P 102, RR 20, BP 159/63, SpO2 98%
LABS: WBC 9.4, Hg 13.1, PLT 153, Na 141, K+ 4.5, Cl 83, CO2 39, BUN 22, Cr 0.9, Glucose 119
LE US:
IMPRESSION: No evidence of deep venous thrombosis of the left lower extremity.
CXR
IMPRESSION:
Limited study with extremely low lung volumes.
Pulmonary vascularity at least top normal. Cannot exclude mild CHF versus acute pulmonary edema.
Mild bibasilar opacity most likely representing subsegmental atelectasis. Cannot exclude left lower lobe pneumonia.
MAR: IV Vancomycin and Lasix 60mg IV x 1
Pre-Syncope
Orthostasis
-patient clearly volume overloaded on exam and currently hypertensive
-treat other issues as below
-obtain orthostats in AM, consider midodrine
-PT/OT
Lower Extremity Swelling
Heart Failure preserved EF Acute Exacerbation
-TTE 07/28 with EF 60-65%
-s/p Lasix 60mg IV in the ER, will continue BID
-patient was recently changed from Lasix to Bumex oral as outpatient
-strict I/O, daily weights
-repeat echo
COPD
Chronic Hypoxic Respiratory Failure
-SENIOR SYSTEMS ADMINISTRATOR inhalers
Hyperlipidemia
-SENIOR SYSTEMS ADMINISTRATOR statin
Anxiety/Depression
-SENIOR SYSTEMS ADMINISTRATOR Bupropion BID, Duloxetine
GERD
Carotid Stenosis s/p bilateral CEA
-patient states he is allergic to aspirin, he was on Plavix in past - he'll need to clarify with his PCP
-SENIOR SYSTEMS ADMINISTRATOR statin
Obesity
DARRON
DVT PPx lovenox subQ
DNR - discussed on admission
76 minutes spent on patient care
[2024-01-19] MEDS: LASIX 60 MG IV (21:47)
[2024-01-19] MEDS: ANCEF 10 IV (22:06)
--- NOTE | 2024-01-19 23:00 | PTCARENOTE ---
Pt arrived to room 425-01. Pt transferred from stretcher to bed. Pt AAOx3, VSS. Pt on 4L NC. Pt oriented to room, call jerome placed within reach.
[2024-01-19] MEDS: LOVENOX 40 MG SC (23:35)
[2024-01-19] MEDS: TYLENOL 1000 MG PO (23:35)
[2024-01-19] MEDS: WELLBUTRIN REGULAR RELEASE 100 MG PO (23:35)
[2024-01-20] VITALS (8 sets, daily range): BP systolic 106–144; BP diastolic 58–72; PULSE 80–88; O2SAT 94–95; BMI 37.9
[2024-01-20] MEDS: MELATONIN 5 MG PO (00:51)
[2024-01-20] MEDS: ANCEF 10 IV ×3 (04:39→21:05)
--- NOTE | 2024-01-20 07:19 | W.PN.HOSP.TC ---
Today's Communication/Plan
-
Continue IV diuresis
Monitor on tele
Cardiology consulted
Assessment / Plan
Assessment / Plan
Physical Exam
General: Not in acute distress
HEENT: Normocephalic
Respiratory: Clear; No Wheezes
Cardiac: S1/S2 and Regular Rhythm
GI: Soft and Non Tender. Positive bowel sounds.
Musculoskeletal: Other (significant bilateral LE edema with area of erythema and warmth on left medial faustin )
Skin: Warm and Dry; No Rash
Neuro: AO x 3
Psych: Calm
Assessment/Plan
Mr. Pedro Mota is a 78 yo man with hx HTN, obesity, DARRON, COPD with chronic respiratory failure on 3L, HLD, HFpEF, GERD, Anxiety, carotid stenosis s/p bilateral CEA presents to the ER with multiple episodes of lightheadedness when going from
a seated to standing position this evening. He was started on antibiotics for LLE cellulitis yesterday and is found to be volume overloaded on exam.
Triage VS: T 98.2, P 102, RR 20, BP 159/63, SpO2 98%
LABS: WBC 9.4, Hg 13.1, PLT 153, Na 141, K+ 4.5, Cl 83, CO2 39, BUN 22, Cr 0.9, Glucose 119
LE US:
IMPRESSION: No evidence of deep venous thrombosis of the left lower extremity.
CXR
IMPRESSION:
Limited study with extremely low lung volumes.
Pulmonary vascularity at least top normal. Cannot exclude mild CHF versus acute pulmonary edema.
Mild bibasilar opacity most likely representing subsegmental atelectasis. Cannot exclude left lower lobe pneumonia.
MAR: IV Vancomycin and Lasix 60mg IV x 1
Pre-Syncope
Orthostasis
-Possibly from reduced EF CHF, seems like EF has dramatically dropped since last one
-patient clearly volume overloaded on exam and currently hypertensive
-treat other issues as below
-Continue monitoring orthostatic vital signs, consider midodrine
-PT/OT
Lower Extremity Swelling
Heart Failure with reduced ejection fraction Acute Exacerbation
-TTE 07/28 with EF 60-65%
-s/p Lasix 60mg IV in the ER, continue BID
-patient was recently changed from Lasix to Bumex oral as outpatient
-strict I/O, daily weights
-repeat echo shows EF in the 20% range
-cardiology consulted, appreciate their evaluation and recommendations
COPD
Chronic Hypoxic Respiratory Failure
-CREDIT CARD ANALYST inhalers
Hyperlipidemia
-CREDIT CARD ANALYST statin
Anxiety/Depression
-CREDIT CARD ANALYST Bupropion BID, Duloxetine
GERD
Carotid Stenosis s/p bilateral CEA
-patient states he is allergic to aspirin, he was on Plavix in past - he'll need to clarify with his PCP
-CREDIT CARD ANALYST statin
Obesity
DARRON
DVT PPx lovenox subQ
DNR - discussed on admission
Anticipated Discharge: > 48 hours
Subjective/Interval History
-
Date of Service: January 20, 2024
Patient was seen and examined. No new significant complaints except chronic pain and some cough.
Objective Data
-
Labs:
Laboratory Results
01/19/24 01/20/24
19:27 06:59
WBC 9.4 Pending
Hgb 13.3 Pending
Hct 43.5 Pending
Plt Count 153 Pending
Sodium 141 Pending
Potassium 4.5 Pending
Chloride 83 L Pending
Carbon Dioxide 39 H Pending
BUN 22 H Pending
Creatinine 0.9 Pending
Glucose 119 H Pending
Calcium 9.0 Pending
Total Bilirubin 0.8
AST 36
ALT 16
Alkaline Phosphatase 73
Vital Signs:
Vital Signs
Temp Pulse Resp BP Pulse Ox
98.4 F 84 18 113/60 93
01/20/24 03:29 01/20/24 03:29 01/20/24 03:29 01/20/24 03:29 01/20/24 03:29
I&O
01/19/24 01/20/24 01/21/24
06:59 06:59 06:59
Output Total 1025 / 1025
Balance -1025 / -1025
[2024-01-20 07:39] LABS: Hematocrit 41.9 % (39.0-52.0); Hemoglobin 13.2 g/dL (13.0-18.0); Mean Corp Hgb Conc. 31.5 g/dL (33.0-37.0); Mean Corpuscular Hgb 31.7 pg (27.0-31.0); Mean Corpuscular Volume 100.7 fL (80.0-94.0); Mean Platelet Volume 11.7 fL (7.4-10.4); Platelet Count 167 10^3/uL (130-400); Red Blood Cell Count 4.16 10^6/uL (4.70-6.10); Red Cell Dist. Width 13.4 % (11.5-14.5); White Blood Cell Count 9.7 10^3/uL (4.8-10.8)
[2024-01-20] MEDS: STRIVERDI RESPIMAT INH (08:29)
[2024-01-20] MEDS: SPIRIVA RESPIMAT 2.5 MCG INH (08:29)
--- NOTE | 2024-01-20 08:30 | CARDSERVLU ---
Echocardiogram with [facility] completed after protocol screening completed. Allergies verified.
Patent IV site: ___Rt FA__
IV site flushed with 0.9% NaCl pre and post administration.
Diluted bolus method utilized to enhance visualization of ventricular garg.
Total volume given: ___3ml_ mL
Patient tolerated all procedures well without complications.
[2024-01-20] MEDS: CRESTOR 20 MG PO (09:13)
[2024-01-20] MEDS: LASIX 60 MG IV ×2 (09:14→17:53)
[2024-01-20] MEDS: CYMBALTA DELAYED RELEASE 20 MG PO (09:14)
[2024-01-20 09:15] LABS: Blood Urea Nitrogen 20 mg/dl (9-20); Calcium 8.7 mg/dl (8.4-10.2); Chloride 86 mmol/L (98-107); Estimated Creatinine Clearance 73 ml/min; Glucose 100 mg/dl (70-99); Magnesium 2.3 mg/dl (1.6-2.3); Potassium 3.5 mmol/L (3.5-5.1); Sodium 144 mmol/L (135-145); eGFR > 60.00
[2024-01-20 09:43] LABS: TSH Reflex To Free T4 2.39 uIU/ml (0.47-4.68)
[2024-01-20 09:48] LABS: Carbon Dioxide 39 mmol/L (22-30)
[2024-01-20] MEDS: WELLBUTRIN REGULAR RELEASE 100 MG PO ×2 (09:55→21:05)
--- NOTE | 2024-01-20 11:34 | CM ---
CM reviewed chart, patient seen bedside. Patient resides at [facility], currently receiving therapy from [facility]. Patient uses a walker for ambulation, reports history of SNF, would like to return home with therapy rather than SNF. Patient
confirms PCP Pedro Drew, pharmacy [facility], confirms prescription coverage. Patient reports he has meals provided to him at [facility], room is cleaned weekly. Patient has home O2 through [facility]. Will fax clinicals to [facility]
[phone]. CM will continue to follow for all discharge planning needs.
Plan; return to [facility] with [facility]
[2024-01-20] MEDS: TYLENOL 1000 MG PO ×2 (14:38→21:05)
[2024-01-20] MEDS: LOVENOX 40 MG SC (17:53)
[2024-01-20] MEDS: HYDROPHOR 1 APPLIC TOPICAL (21:04)
[2024-01-21 03:36] VITALS: BP 122/66
[2024-01-21] MEDS: TYLENOL 1000 MG PO ×3 (05:05→20:53)
[2024-01-21] MEDS: ANCEF 10 IV ×3 (05:05→20:54)
[2024-01-21 06:00] VITALS: BMI 38.0
[2024-01-21 07:00] VITALS: BP 129/64
[2024-01-21 07:34] LABS: Blood Urea Nitrogen 20 mg/dl (9-20); Calcium 8.5 mg/dl (8.4-10.2); Chloride 82 mmol/L (98-107); Estimated Creatinine Clearance 74 ml/min; Glucose 100 mg/dl (70-99); Potassium 3.4 mmol/L (3.5-5.1); Sodium 143 mmol/L (135-145); eGFR > 60.00
[2024-01-21] MEDS: SPIRIVA RESPIMAT 2.5 MCG 2 PUFF INH (07:37)
[2024-01-21] MEDS: STRIVERDI RESPIMAT 2 PUFF INH (07:38)
[2024-01-21 07:54] LABS: Carbon Dioxide 45 mmol/L (22-30)
[2024-01-21] MEDS: CYMBALTA DELAYED RELEASE 20 MG PO (08:58)
[2024-01-21] MEDS: CRESTOR 20 MG PO (08:58)
[2024-01-21] MEDS: WELLBUTRIN REGULAR RELEASE 100 MG PO ×2 (08:58→20:54)
[2024-01-21] MEDS: KCL 40 MEQ PO (08:58)
[2024-01-21] MEDS: HYDROPHOR 1 APPLIC TOPICAL ×2 (08:59→20:54)
[2024-01-21] MEDS: LASIX 60 MG IV ×2 (09:01→16:38)
[2024-01-21 11:00] VITALS: BP 127/63; BP 135/68; BP 139/67; PULSE 68; PULSE 72; PULSE 76
--- NOTE | 2024-01-21 14:42 | W.PN.HOSP.TC ---
Today's Communication/Plan
-
Continue IV Diuresis
Appreciate cardiology
Assessment / Plan
Assessment / Plan
Physical Exam
General: Not in acute distress
HEENT: Normocephalic
Respiratory: Clear; No Wheezes
Cardiac: S1/S2 and Regular Rhythm
GI: Soft and Non Tender. Positive bowel sounds.
Musculoskeletal: Other (significant bilateral LE edema with area of erythema and warmth on left medial faustin )
Skin: Warm and Dry; No Rash
Neuro: AO x 3
Psych: Calm
Assessment/Plan
Mr. Pedro Mota is a 78 yo man with hx HTN, obesity, DARRON, COPD with chronic respiratory failure on 3L, HLD, HFpEF, GERD, Anxiety, carotid stenosis s/p bilateral CEA presents to the ER with multiple episodes of lightheadedness when going from
a seated to standing position this evening. He was started on antibiotics for LLE cellulitis yesterday and is found to be volume overloaded on exam.
Triage VS: T 98.2, P 102, RR 20, BP 159/63, SpO2 98%
LABS: WBC 9.4, Hg 13.1, PLT 153, Na 141, K+ 4.5, Cl 83, CO2 39, BUN 22, Cr 0.9, Glucose 119
LE US:
IMPRESSION: No evidence of deep venous thrombosis of the left lower extremity.
CXR
IMPRESSION:
Limited study with extremely low lung volumes.
Pulmonary vascularity at least top normal. Cannot exclude mild CHF versus acute pulmonary edema.
Mild bibasilar opacity most likely representing subsegmental atelectasis. Cannot exclude left lower lobe pneumonia.
MAR: IV Vancomycin and Lasix 60mg IV x 1
Pre-Syncope
Orthostasis
-Possibly from reduced EF CHF, seems like EF has dramatically dropped since last one
-patient clearly volume overloaded on exam and currently hypertensive
-treat other issues as below
-Continue monitoring orthostatic vital signs, consider midodrine
-PT/OT
Lower Extremity Swelling
Heart Failure with reduced ejection fraction Acute Exacerbation
-TTE 07/28 with EF 60-65%
-s/p Lasix 60mg IV in the ER, continue BID
-patient was recently changed from Lasix to Bumex oral as outpatient
-strict I/O, daily weights
-repeat echo shows EF in the 20% range
-cardiology consulted, appreciate their evaluation and recommendations
COPD
Chronic Hypoxic Respiratory Failure
-CAN FEEDER inhalers
Hyperlipidemia
-CAN FEEDER statin
Anxiety/Depression
-CAN FEEDER Bupropion BID, Duloxetine
GERD
Carotid Stenosis s/p bilateral CEA
-patient states he is allergic to aspirin, he was on Plavix in past - he'll need to clarify with his PCP
-CAN FEEDER statin
Obesity
DARRON
DVT PPx lovenox subQ
DNR - discussed on admission
Anticipated Discharge: 24 - 48 hours
Subjective/Interval History
-
Date of Service: January 21, 2024
Patient was seen and examined. He denied any chest pain, SOB or any other complaints.
Objective Data
-
Labs:
Laboratory Results
01/21/24
06:29
Sodium 143
Potassium 3.4 L
Chloride 82 L
Carbon Dioxide 45 H
BUN 20
Creatinine 0.9
Glucose 100 H
Calcium 8.5
Vital Signs:
Vital Signs
Temp Pulse Resp BP Pulse Ox
97.8 F 68 20 135/68 97
01/21/24 11:00 01/21/24 11:00 01/21/24 11:00 01/21/24 11:00 01/21/24 11:00
I&O
01/20/24 01/21/24 01/22/24
06:59 06:59 06:59
Intake Total 120 / 120
Output Total 1025 / 1025 850 / 850
Balance -1025 / -1025 -730 / -730
[2024-01-21 15:00] VITALS: BP 114/60
--- NOTE | 2024-01-21 15:02 | W.PN.CD ---
Today's Communication / Plan
-
Consult dictated
We may need to progress to R and L cardiac cath when cellulitis stable to better understand L/R filling pressures
An ABG may be helpful here as well
Volume status challenging to determine, suspect volume overloaded
- IV diuresis given his peripheral edema
Extent of lung disease uncertain
- Baseline ABG may be helpful
Case management c/s for coverage cost for ARNI/SGLT2-I
Med adjustment
Impression / Plan
-
Presents to the ER with episodes of orthostatic lightheadedness, increased diuretic use, LE erythema
Dizziness
- Recent adjustment of diuretics
- Mostly orthostatic
- Watch tele
- Check orthostatic vitals are mildly + but not dramatic
Contracture alkalosis
Bifascicular block
- RBBB/LAFB
- Watch on tele
Suspected cellulitis
Suspected acute on chronic HFr, LVEF 20-25%
- Contracture alkalosis with O2 requiring COPD on diuretic with persistent edema
- CXR has low lung volume but concerning for heart failure
- Watch with diuresis
- Cautious med adjustment perhaps best to await clarification of volume status, just Lasix for now
- later hope all GDMT (HF BB, RAAS-I [arni or pascual-i, or arb], MRA, SGLT-I)
HTN
PAD: carotid endarterectomy
Chronic LE edema
- Perhaps not all from heart failure
COPD, oxygen at home
Spine stenosis
Knee DJD
hx obstructive sleep apnea
hx GERD
Fibromyalgia
Subjective:
Says legs are better, less swollen
Data:
Echo 01/20/2024: LVEF 20-25%, top normal in size, mild LVH, global LV hypo, RV normal size/fxn, mild MR, PASP could not be estimated, IVC not seen, decline in LVEF is new from 2017
Physical Exam
Vital Signs/Labs
Vital Signs
Temp Pulse Resp BP Pulse Ox
97.8 F 68 20 135/68 97
01/21/24 11:00 01/21/24 11:00 01/21/24 11:00 01/21/24 11:00 01/21/24 11:00
01/20/24 01/21/24 01/22/24
06:59 06:59 06:59
Actual Weight 99.972 kg 100.442 kg
01/20/24 06:59
Magnesium 2.3 mg/dl (1.6-2.3) 01/20/24 06:59
01/19/24
19:27
Lyg-U-Glzmckgppyk Pept 1360
LAB Results
01/19/24
19:27
Troponin I 0.026
Data Reviewed
-
Date of Service: January 21, 2024
--- NOTE | 2024-01-21 15:42 | PTCARENOTE ---
pt with episode of heart rate to 150. bp 14/60. asymptomatic. states he was attempting to stand up. Dr Dominguez from Cardiology aware and stated it looked like a burst of atrial tachycardia. if persists pt to have a 12 lead EKG
[2024-01-21 16:43] LABS: B.E. 23.4 mmol/L; O2 Saturation % 98.1 % (94-98); PO2 81 mmHg (83-108); pH 7.38 (7.35-7.45)
[2024-01-21 16:46] LABS: PCO2 90 mmHg (35-48)
[2024-01-21 16:47] LABS: HCO3 53.2 mmol/L (21-28)
[2024-01-21] MEDS: LOVENOX 40 MG SC (17:29)
[2024-01-21 19:00] VITALS: BP 135/76
[2024-01-21 21:42] LABS: Blood Urea Nitrogen 18 mg/dl (9-20); Calcium 8.2 mg/dl (8.4-10.2); Chloride 82 mmol/L (98-107); Estimated Creatinine Clearance 74 ml/min; Glucose 113 mg/dl (70-99); Magnesium 2.1 mg/dl (1.6-2.3); Potassium 3.9 mmol/L (3.5-5.1); Sodium 141 mmol/L (135-145); eGFR > 60.00
[2024-01-21 22:03] LABS: Carbon Dioxide 49 mmol/L (22-30)
[2024-01-21 23:00] VITALS: BP 121/54
[2024-01-22] VITALS (7 sets, daily range): BP systolic 93–139; BP diastolic 49–75; PULSE 3; BMI 37.5
[2024-01-22] MEDS: ANCEF 10 IV ×3 (05:13→20:06)
[2024-01-22] MEDS: TYLENOL 1000 MG PO ×3 (05:13→22:05)
[2024-01-22 07:30] LABS: Blood Urea Nitrogen 17 mg/dl (9-20); Calcium 8.4 mg/dl (8.4-10.2); Chloride 84 mmol/L (98-107); Estimated Creatinine Clearance 82 ml/min; Glucose 93 mg/dl (70-99); Potassium 3.9 mmol/L (3.5-5.1); Sodium 141 mmol/L (135-145); eGFR > 60.00
[2024-01-22] MEDS: STRIVERDI RESPIMAT 2 PUFF INH (07:49)
[2024-01-22] MEDS: SPIRIVA RESPIMAT 2.5 MCG 2 PUFF INH (07:49)
[2024-01-22] MEDS: WELLBUTRIN REGULAR RELEASE 100 MG PO ×2 (08:52→20:05)
[2024-01-22] MEDS: HYDROPHOR 1 APPLIC TOPICAL ×2 (08:52→20:05)
[2024-01-22] MEDS: CRESTOR 20 MG PO (08:52)
[2024-01-22] MEDS: CYMBALTA DELAYED RELEASE 20 MG PO (08:52)
[2024-01-22] MEDS: LASIX 60 MG IV (08:53)
[2024-01-22 09:38] LABS: Carbon Dioxide 38 mmol/L (22-30)
--- NOTE | 2024-01-22 09:50 | CM ---
CM consult for medication pricing
Call with [facility] FEP program [phone] (p)
Entresto 49/51 mg BID
30 day retail- $326.17
90 day mail order- $125
Farxiga 10 mg QD- prior auth required
30 day retail- $33.79
90 day mail order- $40
Jardiance 10 mg QD- prior auth required
30 day retail- $27.56
90 day mail order- $40
To complete prior auth, call FEP at [phone]
Option 3 and then Option 1
TT/Dr Dominguez with update
--- NOTE | 2024-01-22 12:22 | W.PN.HOSP.TC ---
Today's Communication/Plan
-
Continue IV diuresis
As per cardiology, may need to progress to R and L cardiac cath
Assessment / Plan
Assessment / Plan
Physical Exam
General: Not in acute distress
HEENT: Normocephalic
Respiratory: CTAB
Cardiac: S1/S2 and Regular Rhythm
GI: Soft and Non Tender. Positive bowel sounds.
Musculoskeletal: Other (significant bilateral LE edema with area of erythema and warmth on left medial faustin )
Skin: Warm and Dry; No Rash
Neuro: AO x 3
Psych: Calm
Assessment/Plan
Mr. Pedro Mota is a 78 yo man with hx HTN, obesity, DARRON, COPD with chronic respiratory failure on 3L, HLD, HFpEF, GERD, Anxiety, carotid stenosis s/p bilateral CEA presents to the ER with multiple episodes of lightheadedness when going from
a seated to standing position this evening. He was started on antibiotics for LLE cellulitis yesterday and is found to be volume overloaded on exam.
Triage VS: T 98.2, P 102, RR 20, BP 159/63, SpO2 98%
LABS: WBC 9.4, Hg 13.1, PLT 153, Na 141, K+ 4.5, Cl 83, CO2 39, BUN 22, Cr 0.9, Glucose 119
LE US:
IMPRESSION: No evidence of deep venous thrombosis of the left lower extremity.
CXR
IMPRESSION:
Limited study with extremely low lung volumes.
Pulmonary vascularity at least top normal. Cannot exclude mild CHF versus acute pulmonary edema.
Mild bibasilar opacity most likely representing subsegmental atelectasis. Cannot exclude left lower lobe pneumonia.
MAR: IV Vancomycin and Lasix 60mg IV x 1
Pre-Syncope
Orthostatic Hypotension -- RESOLVED OF MOST RECENT ORTHOSTATIC VITAL SIGNS
-Possibly from reduced EF CHF, seems like EF has dramatically dropped since last one
-patient clearly volume overloaded on exam
-treat other issues as below
-Continue monitoring orthostatic vital signs, consider midodrine
-PT/OT
Lower Extremity Swelling
Heart Failure with reduced ejection fraction Acute Exacerbation
-TTE 07/28 with EF 60-65%
-s/p Lasix 60mg IV in the ER, continue IV Lasix BID
-patient was recently changed from Lasix to Bumex oral as outpatient
-strict I/O, daily weights ----> weights are overall decreased
-repeat echo shows EF in the 20% range
-Per cardiology, may need to progress to R and L cardiac cath when cellulitis stable to better understand L/R filling pressures
-cardiology consulted, appreciate their evaluation and recommendations
COPD
Chronic Hypoxic Respiratory Failure
-TEMPORARY OFFICE ASSISTANT inhalers
-Consulted pulm based on ABG results, after discussion with cardiology
Hyperlipidemia
-TEMPORARY OFFICE ASSISTANT statin
Anxiety/Depression
-TEMPORARY OFFICE ASSISTANT Bupropion BID, Duloxetine
GERD
Carotid Stenosis s/p bilateral CEA
-patient states he is allergic to aspirin, he was on Plavix in past - he'll need to clarify with his PCP
-TEMPORARY OFFICE ASSISTANT statin
-Carotid ultrasound ordered (given patient's lightheadedness symptoms above) and completed, but the radiology read is still pending -- have asked on-call radiologist to look into
Obesity
DARRON
DVT Prophylaxis: lovenox subQ
DNR - discussed on admission
Anticipated Discharge: > 48 hours
Subjective/Interval History
-
Date of Service: January 22, 2024
Patient was seen and examined. He denied any chest pain, SOB, leg pain or swelling, or any other complaints.
Objective Data
-
Labs:
Laboratory Results
01/22/24
06:20
Sodium 141
Potassium 3.9
Chloride 84 L
Carbon Dioxide 38 H
BUN 17
Creatinine 0.8
Glucose 93
Calcium 8.4
Vital Signs:
Vital Signs
Temp Pulse Resp BP Pulse Ox
97.6 F 72 18 93/49 92
01/22/24 11:00 01/22/24 11:00 01/22/24 11:00 01/22/24 11:00 01/22/24 11:00
I&O
01/21/24 01/22/24 01/23/24
06:59 06:59 06:59
Intake Total 120 / 120 1200 / 1200
Output Total 850 / 850 1450 / 1450
Balance -730 / -730 -250 / -250
--- NOTE | 2024-01-22 13:15 | W.PN.CD ---
Today's Communication / Plan
-
Decrease Lasix
Monitor HCO2
Not ready for cath
Await pulmonary input
Impression / Plan
-
Presents to the ER with episodes of orthostatic lightheadedness, increased diuretic use, LE erythema
Dizziness
- Recent adjustment of diuretics
- Mostly orthostatic
- Watch tele => so far just 1-2 very short runs of AT, no AV block
- Check orthostatic vitals are mildly + but not dramatic
Contracture alkalosis
- HCO3 better 49 => 38
- ABG suggests suggests contracture alkalosis is in part/large part compensatory to respiratory acidosis and some metabolic alkalosis component from loop diuretic
- May need acetazolamide if severe elevation of HCO3 recurs
- Will decrease Lasix to one time daily
Low O2 with respiratory acidosis
- Pulmonary input will be helpful
Bifascicular block
- RBBB/LAFB
- Watch on tele
Suspected cellulitis
Suspected acute on chronic HFr, LVEF 20-25%
- Contracture alkalosis with O2 requiring COPD on diuretic with persistent edema => edema improving, decrease Lasix, consider acetazolamide if severe HCO2 elevation recurs
- CXR has low lung volume but concerning for heart failure
- Watch with diuresis
- Cautious med adjustment perhaps best to await clarification of volume status, just Lasix for now
- later hope all GDMT (HF BB, RAAS-I [arni or pascual-i, or arb], MRA, SGLT-I)
HTN
PAD: carotid endarterectomy
Chronic LE edema
- Perhaps not all from heart failure
COPD, oxygen at home
Spine stenosis
Knee DJD
hx obstructive sleep apnea
hx GERD
Fibromyalgia
Subjective:
Says legs are better, less swollen
Data:
Echo 01/20/2024: LVEF 20-25%, top normal in size, mild LVH, global LV hypo, RV normal size/fxn, mild MR, PASP could not be estimated, IVC not seen, decline in LVEF is new from 2017
Physical Exam
Vital Signs/Labs
Vital Signs
Temp Pulse Resp BP Pulse Ox
97.6 F 72 18 93/49 92
01/22/24 11:00 01/22/24 11:00 01/22/24 11:00 01/22/24 11:00 01/22/24 11:00
01/21/24 01/22/24 01/23/24
06:59 06:59 06:59
Actual Weight 100.442 kg 99.019 kg
01/20/24 06:59
01/22/24 06:20
Magnesium 2.1 mg/dl (1.6-2.3) 01/21/24 21:14
01/19/24
19:27
Ojz-J-Gipfjtcgdnx Pept 1360
LAB Results
01/19/24
19:27
Troponin I 0.026
Physical Exam
Constitutional: No acute distress
EENT: Anicteric
Cardiovascular: Rhythm & rate is regular, Pedal edema present (improved) and S1S2 is normal
Respiratory: Respiratory effort normal and Lungs clear to auscul.
GI: Soft and Distention absent
Neuro/Psych: Alert
Data Reviewed
-
Date of Service: January 22, 2024
--- NOTE | 2024-01-22 14:17 | CON.PUL ---
Consultation
Consultation Request
Date/Time Consultation Requested: 01/22/2024
Date/Time Consultation Performed: 01/22/2024
Requesting Provider: Dr. Jay
Performing Provider: Dr. Ranjith Finn
Reason for Consultation: Hypercapnic respiratory failure
Medical History
-
History of Present Illness:
78-year-old man with history of hypertension, obesity, obstructive sleep apnea, COPD with chronic respiratory failure on 3 L of supplemental oxygen, hyperlipidemia, heart failure with preserved ejection fraction, GERD, anxiety, history of bilateral
carotid endarterectomy presented to the emergency room with lightheadedness when going from the sitting to the standing position. Multiple events.
Initially admitted on 01/19/2024.
Does report worsening lower extremity edema.
He was being treated for cellulitis as well. Currently on vancomycin.
In general, patient lives independently and ambulates with a walker.
Chest x-ray showed low lung volumes. Likely subsegmental atelectasis
During this admission discovered to have heart failure with reduced ejection fraction. Diuresis started.
Past Medical History
Past Medical History: Other (See assessment and plan)
Social History
Tobacco: Former Smoker
Alcohol: None
Living: Alone
Family History
Family History: Reviewed & Not Pertinent
Allergies / Home Medications
Allergies
Allergy/AdvReac Type Severity Reaction Status Date / Time
aspirin Allergy Rash Verified 01/19/24 19:14
ciprofloxacin [From Cipro] Allergy Rash Verified 01/19/24 19:14
ciprofloxacin HCl Allergy Rash Verified 01/19/24 19:14
[From Cipro]
gabapentin Allergy Hives Verified 01/19/24 19:14
Penicillins Allergy Rash Verified 01/19/24 19:14
Sulfa (Sulfonamide Allergy Unknown Verified 01/19/24 19:14
Antibiotics)
melatonin AdvReac Intermediate hallucinati Uncoded 01/21/24 01:33
ons
Home Medications
�Medication �Instructions �Recorded �Confirmed �Last Taken �Type
cholecalciferol (vitamin D3) 25 1,000 units PO DAILY Supplement 07/10/16 01/19/24 01/19/24 History
mcg (1,000 unit) tablet
acetaminophen 500 mg tablet 1,000 mg PO HS Pain 01/19/24 01/19/24 01/18/24 History
(Tylenol Extra Strength)
bumetanide 2 mg tablet 2 mg PO BID Fluid 01/19/24 01/19/24 01/19/24 History
Retention/Swelling
bupropion HCl 100 mg tablet 100 mg PO BID Mental Health/Anxiety 01/19/24 01/19/24 01/19/24 History
duloxetine 20 mg capsule,delayed 20 mg PO DAILY Mental 01/19/24 01/19/24 01/19/24 History
release Health/Anxiety
rosuvastatin 20 mg tablet 20 mg PO DAILY High Cholesterol 01/19/24 01/19/24 01/19/24 History
therapeutic multivitamin 1 tab PO DAILY Supplement 01/19/24 01/19/24 01/19/24 History
umeclidinium 62.5 mcg-vilanterol 1 inh inhalation R DAILY 01/19/24 01/19/24 01/19/24 History
25 mcg/actuation powdr for Lung/Breathing Issues
inhalation (Anoro Ellipta)
Review of Systems
-
History Source: Patient
All other systems: Negative unless noted
Vitals / Labs / Diagnostic Testing
Vital Signs
Temp Pulse Resp BP Pulse Ox
97.6 F 72 18 93/49 92
01/22/24 11:00 01/22/24 11:00 01/22/24 11:00 01/22/24 11:00 01/22/24 11:00
Lab Data
01/20/24 06:59
01/22/24 06:20
Laboratory Results
01/21/24
16:35
pH 7.38
pCO2 90 H*
pO2 81 L
HCO3 53.2 H*
O2 Delivery Level
Microbiology
01/20/24 09:39 Sputum Respiratory Culture - Final
Usual Respiratory Kayleigh
01/20/24 09:39 Sputum Gram Stain - Final
01/19/24 23:41 Nose MRSA Screen - Final
No Methicillin Resistant Staphylococcus aureus isolated.
Diagnostic Testing:
Physical Exam
-
HEENT: Normocephalic
Cardiovascular: S1/S2 and Peripheral Edema (Left lower extremity edema.)
Respiratory: Non-Labored Respirations
GI: Soft and Non Distended
Neurology: Awake, Alert, AO x 3, No Motor Deficits and Other (Following commands.)
Skin: Warm
General: Comfortable
Assessment
-
78-year-old man admitted with presyncopal episodes, lower extremity edema, found to have lower extremity cellulitis. Discovered to have new onset decreased on ejection fraction/systolic heart failure ejection fraction 25%. Cardiology recommending
diuretics as well as right and left catheterization. ABG found to have chronic hypercapnic respiratory failure with pCO2 greater than 80.
Chronic hypercapnic respiratory failure likely due to obesity hypoventilation syndrome/obstructive sleep apnea.
Chest x-ray reviewed: Showed, low lung volumes. Changes consistent with mild pulmonary edema.Bibasilar atelectasis.
ABG 01/21/2024: 7.38/90/81
ABG 07/14/2016: 7.39/65/38
Chronic lower extremity edema
New onset systolic heart failure:
Echocardiogram 20-25%/mild concentric left ventricular hypertrophy. Global hypokinesis. Stage I diastolic dysfunction. Normal right ventricular size and function. MR. Significantly reduced ejection fraction compared to 2017.
Cellulitis left lower extremity-in [facility]
Conditions present prior admission:
GERD
Obesity
Anxiety/depression
Hyperlipidemia
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
on ANORO
He was seen back in 2017 in our office and lost to follow-up.
Chronic lymphedema
Assessment and plan:
From the pulmonary perspective he has compensated chronic hypercapnic respiratory failure likely due to obesity hypoventilation syndrome/obstructive sleep apnea.
Recommend starting empirical BiPAP while in the hospital 26/07. Ideally will require outpatient evaluation with a sleep study etc. Would recommend discharging this patient once ready with a BiPAP machine and highly recommend outpatient
pulmonary/sleep follow-up.
ECW reviewed and this patient was seen in our office in 2017. He lost to follow-up.
His hypercapnia dates at least since 2017.
Avoid sedatives
-
Echocardiogram without evidence for pulmonary hypertension
-
From the COPD perspective okay to continue with inhalers-not on exacerbation
Continue oxygen supplementation maintain pulse ox above 90%
No PFT available
Recommend outpatient pulmonary follow-up
-
Systolic heart failure: Cardiology correspondence reviewed.
Continue with diuretics and optimize medical management
Monitor renal function and electrolytes
Hold off on Diamox as pCO2 of 38. Will continue to follow closely and if pCO2 is greater than 40 consistently may consider.
Eventual left/right catheterization. Challenging to determine volume status due to morbid obesity.
-
Cellulitis currently on cefazolin.
-
Ambulatory dysfunction: Usually ambulates with a walker.
-
DVT prophylaxis Lovenox
-Will follow
Recommend outpatient pulmonary follow-up
-
Close friend is the only relative available at this point. He was updated at the bedside by Dr. Finn 01/22/2024
[2024-01-22] MEDS: REFRESH EYE DROPS (PF) 1 DROPS OPHTH (15:15)
[2024-01-22] MEDS: LOVENOX 40 MG SC (17:17)
[2024-01-23] VITALS (9 sets, daily range): BP systolic 109–147; BP diastolic 49–88; PULSE 3–77; O2SAT 97; BMI 37.3
--- NOTE | 2024-01-23 02:35 | PTCARENOTE ---
Addendum entered by Steven Sánchez RN 01/23/24 04:18:
Pt removed BiPAP requesting only oxygen. Pt states, 'I cannot do this anymore.' Pt educated on importance again.
Addendum entered by Steven Sánchez RN 01/23/24 03:47:
Pt up to use urinal, commercial lines underwriter re educated pt on importance of BiPAP, pt agreeable. BiPAP reapplied by respiratory therapist.
Original Note:
Pt wanted BiPap removed, pt educated on need of device and importance of it. Pt states, 'I dont care I need it off right now.' Pt BiPap removed, baseline 4L NC reapplied Sp02 96%. Pt states, 'I will put it back on later.' OCCUPATIONAL SAFETY AND HEALTH MANAGER Adelia Read made
aware.
[2024-01-23] MEDS: TYLENOL 1000 MG PO ×3 (05:51→22:43)
[2024-01-23] MEDS: ANCEF 10 IV ×3 (05:52→20:15)
[2024-01-23] MEDS: STRIVERDI RESPIMAT 2 PUFF INH (07:25)
[2024-01-23] MEDS: SPIRIVA RESPIMAT 2.5 MCG 2 PUFF INH (07:25)
[2024-01-23 08:33] LABS: Hematocrit 39.7 % (39.0-52.0); Hemoglobin 11.9 g/dL (13.0-18.0); Mean Corpuscular Hgb 31.1 pg (27.0-31.0); Mean Corpuscular Volume 103.7 fL (80.0-94.0); Mean Platelet Volume 11.7 fL (7.4-10.4); Platelet Count 149 10^3/uL (130-400); Red Blood Cell Count 3.83 10^6/uL (4.70-6.10); Red Cell Dist. Width 13.3 % (11.5-14.5); White Blood Cell Count 9.7 10^3/uL (4.8-10.8)
--- NOTE | 2024-01-23 08:57 | W.PN.HOSP.TC ---
Today's Communication/Plan
-
Stop Abx
c/w Lasix
Low dose Klonopin at HS to improve compliance with BI pap
Use Bi pap PRN during the day also
Potassium replacement
Assessment / Plan
Assessment / Plan
Physical Exam
General: Not in acute distress
HEENT: Normocephalic
Respiratory: no wheezes, limited
Cardiac: S1/S2 and Regular Rhythm, + murmur
GI: Soft and Non Tender. Positive bowel sounds.
Musculoskeletal:less bilateral LE edema.
Skin: Warm and Dry; No Rash
Neuro: AO x 3, he followed commands.
Psych: Calm
Assessment/Plan
Mr. Pedro Mota is a 78 yo man with hx HTN, obesity, DARRNO, COPD with chronic respiratory failure on 3L, HLD, HFpEF, GERD, Anxiety, carotid stenosis s/p bilateral CEA presents to the ER with multiple episodes of lightheadedness when going from
a seated to standing position this evening. He was started on antibiotics for LLE cellulitis yesterday and is found to be volume overloaded on exam.
#Pre-Syncope
Orthostatic Hypotension -- RESOLVED OF MOST RECENT ORTHOSTATIC VITAL SIGNS
-patient clearly volume overloaded on exam
-PRN midodrine to c/w diuretic Tx.
-PT/OT
# Acute on Chronic hypercapnic respiratory failure likely due to obesity hypoventilation syndrome/obstructive sleep apnea.
Non compliance with C pap Tx
Chronic lower extremity edema
Acute on chronic Heart Failure with reduced ejection fraction
-TTE 07/28 with EF 60-65%, now Echocardiogram 20-25%/mild concentric left ventricular hypertrophy. Global hypokinesis. Stage I diastolic dysfunction. Normal right ventricular size and function. Significantly reduced ejection fraction
compared to 2017
-s/p Lasix 60mg IV in the ER, continue IV Lasix 60 mg QD
-patient was recently changed from Lasix to Bumex oral as outpatient
-strict I/O, daily weights ----> weights are overall decreased
-Per cardiology, may need to progress to R and L cardiac cath when cellulitis stable to better understand L/R filling pressures
-cardiology consulted, appreciate their evaluation and recommendations
# Pt reports claustrophobia to use Bipap at night( refuses to use it at night )
d/w pt, can try low dose Klonopin at night
# Hypokalemia, replace
# Suspected lower Ext cellulitis on admission
No fever, no leukocytosis, no tenderness, will stop IV Ancef ( he received 4 days of IV Abx)
# Acute on chronic HFrEF/ RBBB/LAFB
Contracture alkalosis, reducing Lasix
#COPD
Not in exacerbation.
Hx of Chronic Hypoxic Respiratory Failure
-STOCK ASSOCIATE inhalers
- Appreciate pulmonary input. Recommend outpatient pulmonary follow-up. Hold off on Diamox as pCO2 is high
#Hyperlipidemia
-STOCK ASSOCIATE statin
#Anxiety/Depression
-STOCK ASSOCIATE Bupropion BID, Duloxetine
#GERD
#Carotid Stenosis s/p bilateral CEA
-patient states he is allergic to aspirin, he was on Plavix in past
-STOCK ASSOCIATE statin
-Carotid ultrasound : No significant carotid plaque is identified bilaterally.
#Obesity
DVT Prophylaxis: lovenox subQ
DNR - discussed on admission
Total time spent to see the patient on the floor, examine the patient, review data and lab results, discuss treatment plan with patient, nursing staff around 55 minutes
Anticipated Discharge: 24 - 48 hours
Subjective/Interval History
-
Date of Service: January 23, 2024
Refuses to wear Bi pap at night
No fevers
Denies sob/ chest pain
Objective Data
-
Labs:
Laboratory Results
01/23/24
08:02
WBC 9.7
Hgb 11.9 L
Hct 39.7
Plt Count 149
Sodium Pending
Potassium Pending
Chloride Pending
Carbon Dioxide Pending
BUN Pending
Creatinine Pending
Glucose Pending
Calcium Pending
Vital Signs:
Vital Signs
Temp Pulse Resp BP Pulse Ox
97.9 F 78 16 147/88 92
01/23/24 07:00 01/23/24 07:29 01/23/24 07:29 01/23/24 07:00 01/23/24 07:29
I&O
01/22/24 01/23/24 01/24/24
06:59 06:59 06:59
Intake Total 1200 / 1200 1200 / 1200
Output Total 1450 / 1450 1974 / 1974
Balance -250 / -250 -775 / -775
[2024-01-23 09:06] LABS: Blood Urea Nitrogen 15 mg/dl (9-20); Calcium 8.7 mg/dl (8.4-10.2); Chloride 81 mmol/L (98-107); Estimated Creatinine Clearance 73 ml/min; Glucose 94 mg/dl (70-99); Magnesium 2.2 mg/dl (1.6-2.3); Potassium 3.4 mmol/L (3.5-5.1); Sodium 140 mmol/L (135-145); eGFR > 60.00
--- NOTE | 2024-01-23 09:14 | W.PN.PUL.V3 ---
Today's Communication / Plan
-
Continue oxygen
Gentle diuresis
Check ABG
BiPAP
Considering right and left heart catheterization
Assessment
-
78-year-old man admitted with presyncopal episodes, lower extremity edema, found to have lower extremity cellulitis. Discovered to have new onset decreased on ejection fraction/systolic heart failure ejection fraction 25%. Cardiology recommending
diuretics as well as right and left catheterization. ABG found to have chronic hypercapnic respiratory failure with pCO2 greater than 80.
Chronic hypercapnic respiratory failure likely due to obesity hypoventilation syndrome/obstructive sleep apnea.
Chest x-ray reviewed: Showed, low lung volumes. Changes consistent with mild pulmonary edema.Bibasilar atelectasis.
ABG 01/21/2024: 7.38/90/81
ABG 07/14/2016: 7.39/65/38
Chronic lower extremity edema
New onset systolic heart failure:
Echocardiogram 20-25%/mild concentric left ventricular hypertrophy. Global hypokinesis. Stage I diastolic dysfunction. Normal right ventricular size and function. MR. Significantly reduced ejection fraction compared to 2017.
Cellulitis left lower extremity-in [facility]
Conditions present prior admission:
GERD
Obesity
Anxiety/depression
Hyperlipidemia
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
on ANORO
He was seen back in 2017 in our office and lost to follow-up.
Chronic lymphedema
Plan
Still somewhat tenuous from a respiratory perspective
Supplemental oxygen as needed
BiPAP 15/5 while in the hospital-encourage use-some agitation and difficulties wearing at nighttime
Low-dose Klonopin added by primary team-monitor for oversedation and progressive hypercapnia
Consider repeat ABG if mental status does not improve
Chronic hypercapnia suspected-see ABGs-nearly pCO2 70 in 2017
Aspiration precautions
Incentive spirometry
Nebulizers-if unable to use inhalers-currently on Spiriva
Recheck ABG
Echocardiogram without evidence for pulmonary hypertension
Diuresis as tolerated
Monitor renal function, electrolytes, intake/output, lower extremity edema and weight
Replace electrolytes as needed
Consider Diamox with probable acute metabolic alkalotic component-check ABG
Cardiology following-correspondence reviewed
Consider right and left heart catheterization
Check cultures
Empiric antibiotics for cellulitis
Monitor blood sugar
Insulin supplementation as needed
DVT prophylaxis-on Lovenox
Nutrition with aspiration precautions
Early mobilization
Close friend is the only relative available at this point. He was updated at the bedside by Dr. Finn 01/22/2024
Outpatient pulmonary/sleep disorders evaluation
Subjective Data
-
Date of Service:
Date of Service: January 23, 2024
Chief Complaint: Pulmonary Follow Up and Dyspnea Follow Up
Subjective:
Still somewhat somnolent, intermittently tolerating CPAP and then takes it off, some confusion, no respiratory distress
Review of Systems
General: Other (Per HPI)
Objective Data
Data Reviewed
Vital Signs / I&O:
Vital Signs
Temp Pulse Resp BP Pulse Ox
97.9 F 78 16 147/88 92
01/23/24 07:00 01/23/24 07:29 01/23/24 07:29 01/23/24 07:00 01/23/24 07:29
Intake and Output
01/22/24 01/23/24 01/24/24
06:59 06:59 06:59
Intake Total 1200 / 1200 1200 / 1200
Output Total 1450 / 1450 1974
Balance -250 / -250 -775 / -775
SaO2: 92
Nasal Cannula flow liters per minute: 3
Physical Exam
General: Respiratory Distress (n) and Comfortable
HEENT: Normocephalic, Anicteric and Moist Mucous Membranes
Cardiovascular: Regular Rhythm
Respiratory: Wheeze (n), Crackles, Rhonchi, Non-Labored Respirations, Accessory Resp Muscle Use (n) and Stridor
GI: Soft, Non Distended and Non Tender
Neurology: Awake, No Motor Deficits and Lethargic
Skin: Warm, Good Color, Cyanosis (n), Jaundice (n) and Rash
Labs/Micro/Reports
Lab Data
01/23/24 08:02
01/23/24 08:02
Microbiology
01/20/24 09:39 Sputum Respiratory Culture - Final
Usual Respiratory Kayleigh
01/20/24 09:39 Sputum Gram Stain - Final
01/19/24 23:41 Nose MRSA Screen - Final
No Methicillin Resistant Staphylococcus aureus isolated.
[2024-01-23 09:22] LABS: Carbon Dioxide 48 mmol/L (22-30)
[2024-01-23] MEDS: HYDROPHOR 1 APPLIC TOPICAL ×2 (09:37→20:15)
[2024-01-23] MEDS: KCL 20 MEQ PO (09:38)
[2024-01-23] MEDS: LASIX 60 MG IV (09:38)
[2024-01-23] MEDS: CYMBALTA DELAYED RELEASE 20 MG PO (09:38)
[2024-01-23] MEDS: CRESTOR 20 MG PO (09:38)
[2024-01-23] MEDS: WELLBUTRIN REGULAR RELEASE 100 MG PO ×2 (09:38→20:14)
--- NOTE | 2024-01-23 10:48 | W.PN.CD ---
Today's Communication / Plan
-
Continue gentle diuresis
Will request outside cardiology records
Hold off on RHC/C while awaiting outside records
Impression / Plan
-
78-year-old male past medical history of hypertension, hyperlipidemia, COPD on home O2, DARRON, carotid endarterectomy, and heart failure with reduced ejection fraction (LVEF 20-25%) who presents to the ER with episodes of orthostatic lightheadedness
in the setting of recently increased diuretics.
Acute on chronic heart failure with reduced ejection fraction (LVEF 20-25%)
-Unclear chronicity and etiology. We will request outpatient cardiology records.
-He is not on any GDMT per our home med list but again we will request outside records
-Continue gentle diuresis with 60 mg IV Lasix daily.
-Weight on admission 101.5 kg, now 98.5 kg (unknown dry weight)
-Hold off on RHC/LHC until we get outside records. He thinks he had a heart catheterization recently.
Dizziness, resolved
-Likely orthostasis due to recent adjustment of diuretics as an outpatient
- Watch tele => so far just 1-2 very short runs of AT, no AV block
- Orthostatic vitals are mildly + but not dramatic
Chronic hypercapnic respiratory failure
-Elevated HCO3 is likely compensatory
-May need acetazolamide if HCO3 remains elevated.
-Appreciate pulmonary evaluation
-Continue nightly BiPAP
Bifascicular block
- RBBB/LAFB
- Watch on tele
Suspected cellulitis
HTN
PAD: carotid endarterectomy
Chronic LE edema
- Perhaps not all from heart failure
Spine stenosis
Knee DJD
hx obstructive sleep apnea
hx GERD
Fibromyalgia
Subjective:
Feels slightly better this morning. Laying almost flat in bed. No events on telemetry.
Data:
Echo 01/20/2024: LVEF 20-25%, top normal in size, mild LVH, global LV hypo, RV normal size/fxn, mild MR, PASP could not be estimated, IVC not seen, decline in LVEF is new from 2017
Physical Exam
Vital Signs/Labs
Vital Signs
Temp Pulse Resp BP Pulse Ox
97.9 F 78 16 147/88 92
01/23/24 07:00 01/23/24 07:29 01/23/24 07:29 01/23/24 07:00 01/23/24 09:14
01/22/24 01/23/24 01/24/24
06:59 06:59 06:59
Actual Weight 99.019 kg 98.458 kg
01/23/24 08:02
01/23/24 08:02
Magnesium 2.2 mg/dl (1.6-2.3) 01/23/24 08:02
01/19/24
19:27
Wsk-V-[id number] Pept 1360
Physical Exam
Constitutional: No acute distress and Comfortable
Cardiovascular: Rhythm & rate is regular, Pedal edema present, JVD present (Difficult to assess JVD due to body habitus), S1S2 is normal and Murmur/rub/gallop absent
Respiratory: Respiratory effort normal
Data Reviewed
-
Date of Service: January 23, 2024
Medical Decision Making: Reviewed Test Results, Independent Historian Assessment, Test Interpretation and Review of Case with other Provider
EKG: Tracing Personally Visualized and interpreted
Echo: Report Reviewed by me
X-Ray/CT/US/MRI/NUC/PET: Image Personally Visualized and interpreted
Labs: Labs Reviewed by me
Old Records: Requested
[2024-01-23 11:53] LABS: B.E. 25.7 mmol/L; O2 Saturation % 99.2 % (94-98); PO2 105 mmHg (83-108); pH 7.41 (7.35-7.45)
[2024-01-23 11:57] LABS: HCO3 55.8 mmol/L (21-28); PCO2 88 mmHg (35-48)
--- NOTE | 2024-01-23 15:12 | CM ---
Addendum entered by Ayah Vega 01/23/24 15:54:
CM received call from friendConnor, patient agreeable to rehab, referrals sent to [facility], [facility], [facility], [facility], [facility], [facility].
Plan; SNF pending accepting facility.
Original Note:
Patient seen bedside with friend/caregiver Derek, discussed PT recommendations of SNF vs VN, patient would like to return home with [facility]. Would also like nursing in addition to PT/OT, will place referral to [facility]. Derek inquiring
about private caregivers/ counseling information, provided with list of private caregivers, local counseling information, suggested patient can also follow up with PCP for counseling resources. CM received call from Alonzo with [facility], received fax
with patients clinicals, will need script for OT upon discharge for OT services in addition to PT. CM will continue to follow for all discharge planning needs.
Plan; home with [facility], will need script for OT, referral to [facility]N.
[2024-01-23] MEDS: LOVENOX 40 MG SC (15:50)
[2024-01-23] MEDS: REFRESH EYE DROPS (PF) 1 DROPS OPHTH (15:50)
[2024-01-23] MEDS: KLONOPIN 0.25 MG PO (22:43)
[2024-01-24] VITALS (9 sets, daily range): BP systolic 113–157; BP diastolic 59–88; PULSE 3–56; O2SAT 100; BMI 37.2
[2024-01-24] MEDS: ANCEF 10 IV (05:02)
[2024-01-24] MEDS: TYLENOL 1000 MG PO ×3 (05:02→20:22)
--- NOTE | 2024-01-24 06:12 | PTCARENOTE ---
Pt tolerated BiPAP much better this HS. Pt kept BiPAP on until about 0500 when he asked to be taken off of it. No restlessness or intermittent on/off episodes with BiPAP- was finally able to sleep through most of night. Pt back on 4L NC 96%.
[2024-01-24] MEDS: HYDROPHOR 1 APPLIC TOPICAL ×2 (08:30→20:11)
[2024-01-24] MEDS: CYMBALTA DELAYED RELEASE 20 MG PO (08:33)
[2024-01-24] MEDS: CRESTOR 20 MG PO (08:34)
[2024-01-24] MEDS: WELLBUTRIN REGULAR RELEASE 100 MG PO ×2 (08:34→20:22)
[2024-01-24] MEDS: LASIX 60 MG IV (08:35)
--- NOTE | 2024-01-24 08:51 | W.PN.HOSP.TC ---
Today's Communication/Plan
-
Did well with Klonopin
High MCV, check vitamin B12, folate level
PT/OT
c/w diuretic therapy
Finishing Abx,
Likely dc to SNF in 48 hours. Would like to use more diuretic therapy
Assessment / Plan
Assessment / Plan
Physical Exam
General: Not in acute distress
HEENT: Normocephalic
Respiratory: no wheezes, limited
Cardiac: S1/S2 and Regular Rhythm, + murmur
GI: Soft and Non Tender. Positive bowel sounds.
Musculoskeletal:less bilateral LE edema.
Skin: Warm and Dry; No Rash
Neuro: AO x 3, he followed commands.
Psych: Calm
Assessment/Plan
Mr. Pedro Mota is a 78 yo man with hx HTN, obesity, DARRON, COPD with chronic respiratory failure on 3L, HLD, HFpEF, GERD, Anxiety, carotid stenosis s/p bilateral CEA presents to the ER with multiple episodes of lightheadedness when going from
a seated to standing position this evening. He was started on antibiotics for LLE cellulitis yesterday and is found to be volume overloaded on exam.
#Pre-Syncope
Orthostatic Hypotension -- RESOLVED OF MOST RECENT ORTHOSTATIC VITAL SIGNS
-patient clearly volume overloaded on exam
-PRN midodrine to c/w diuretic Tx.
-PT/OT
# Acute on Chronic hypercapnic respiratory failure likely due to obesity hypoventilation syndrome/obstructive sleep apnea.
Non compliance with C pap Tx , hope to improve with use of anxiolytic at night
Chronic lower extremity edema
Acute on chronic Heart Failure with reduced ejection fraction
-TTE 07/28 with EF 60-65%, now Echocardiogram 20-25%/mild concentric left ventricular hypertrophy. Global hypokinesis. Stage I diastolic dysfunction. Normal right ventricular size and function. Significantly reduced ejection fraction
compared to 2017
-s/p Lasix 60mg IV in the ER, continue IV Lasix 60 mg QD
-patient was recently changed from Lasix to Bumex oral as outpatient
-strict I/O, daily weights ----> weights are overall decreased ( lost almost 5 kg)
-Per cardiology, may need to progress to R and L cardiac cath when cellulitis stable to better understand L/R filling pressures
-cardiology consulted, appreciate their evaluation and recommendations
# Pt reports claustrophobia to use Bipap at night( refuses to use it at night )
d/w pt, we tried low dose Klonopin at night and it seemed to work well.
# High MCV
Check Vitamin B12, Folate
# Hypokalemia, replace
Recheck
# Suspected lower Ext cellulitis on admission
No fever, no leukocytosis, no tenderness, will stop IV Ancef ( he received 4 days of IV Abx)
# Acute on chronic HFrEF/ RBBB/LAFB
Contracture alkalosis, reducing Lasix
#COPD
Not in exacerbation.
Hx of Chronic Hypoxic Respiratory Failure
-SLAB INSPECTOR inhalers
- Appreciate pulmonary input. Recommend outpatient pulmonary follow-up. Hold off on Diamox as pCO2 is high
#Hyperlipidemia
-SLAB INSPECTOR statin
#Anxiety/Depression
-SLAB INSPECTOR Bupropion BID, Duloxetine
#GERD
#Carotid Stenosis s/p bilateral CEA
-patient states he is allergic to aspirin, he was on Plavix in past
-SLAB INSPECTOR statin
-Carotid ultrasound : No significant carotid plaque is identified bilaterally.
#Obesity
DVT Prophylaxis: lovenox subQ
DNR - discussed on admission
Total time spent to see the patient on the floor, examine the patient, review data and lab results, discuss treatment plan with patient, nursing staff around 55 minutes
Anticipated Discharge: 24 - 48 hours
Subjective/Interval History
-
Date of Service: January 24, 2024
He feels better today, more energy,
He used C pap with good sleep
Objective Data
-
Labs:
Laboratory Results
01/24/24
08:01
Sodium Pending
Potassium Pending
Chloride Pending
Carbon Dioxide Pending
BUN Pending
Creatinine Pending
Glucose Pending
Calcium Pending
Vital Signs:
Vital Signs
Temp Pulse Resp BP Pulse Ox
97.8 F 70 17 137/70 97
01/24/24 07:52 01/24/24 07:52 01/24/24 07:52 01/24/24 07:52 01/24/24 07:52
I&O
01/23/24 01/24/24 01/25/24
06:59 06:59 06:59
Intake Total 1200 / 1200 660 / 660
Output Total 1974 / 1974 1820 / 1820
Balance -775 / -775 -1160 / -1160
--- NOTE | 2024-01-24 09:41 | W.PN.PUL.V3 ---
Today's Communication / Plan
-
Antibiotics
Diuresis
Add Diamox
BiPAP as tolerated
Right and left heart catheterization tomorrow
Assessment
-
78-year-old man admitted with presyncopal episodes, lower extremity edema, found to have lower extremity cellulitis. Discovered to have new onset decreased on ejection fraction/systolic heart failure ejection fraction 25%. Cardiology recommending
diuretics as well as right and left catheterization. ABG found to have chronic hypercapnic respiratory failure with pCO2 greater than 80.
Chronic hypercapnic respiratory failure likely due to obesity hypoventilation syndrome/obstructive sleep apnea.
Chest x-ray reviewed: Showed, low lung volumes. Changes consistent with mild pulmonary edema.Bibasilar atelectasis.
ABG 01/21/2024: 7.38/90/81
ABG 07/14/2016: 7.39/65/38
Chronic lower extremity edema
New onset systolic heart failure:
Echocardiogram 20-25%/mild concentric left ventricular hypertrophy. Global hypokinesis. Stage I diastolic dysfunction. Normal right ventricular size and function. MR. Significantly reduced ejection fraction compared to 2017.
Cellulitis left lower extremity-in [facility]
Conditions present prior admission:
GERD
Obesity
Anxiety/depression
Hyperlipidemia
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
on ANORO
He was seen back in 2017 in our office and lost to follow-up.
Chronic lymphedema
Plan
Pulmonary status is improved
Supplemental oxygen as needed
BiPAP 15/5 while in the hospital-encourage use-some agitation and difficulties wearing at nighttime-Klonopin has helped
Low-dose Klonopin added by primary team-monitor for oversedation and progressive hypercapnia-appears to be doing well with it
Follow occasional ABG
Chronic hypercapnia suspected-see ABGs-nearly pCO2 70 in 2017
ABG 01/23/2024--88/105/7.41
Aspiration precautions
Incentive spirometry
Nebulizers-if unable to use inhalers-currently on Spiriva
Echocardiogram without evidence for pulmonary hypertension
Diuresis as tolerated
Monitor renal function, electrolytes, intake/output, lower extremity edema and weight
Replace electrolytes as needed
Will add Diamox with significant metabolic alkalotic component
Cardiology following-correspondence reviewed
Consider right and left heart catheterization-tentatively 01/25/2024
Cultures reviewed
Sputum with usual respiratory sundar
Empiric antibiotics for cellulitis
Monitor blood sugar
Insulin supplementation as needed
DVT prophylaxis-on Lovenox
Nutrition with aspiration precautions
Early mobilization
Close friend is the only relative available at this point. He was updated at the bedside by Dr. Finn 01/22/2024
Outpatient pulmonary/sleep disorders evaluation
Subjective Data
-
Date of Service:
Date of Service: January 24, 2024
Chief Complaint: Pulmonary Follow Up and Dyspnea Follow Up
Subjective:
More alert, on BiPAP for 5 hours, no complaints of shortness of breath or chest pain
Review of Systems
General: Other (Per HPI)
Objective Data
Data Reviewed
Vital Signs / I&O:
Vital Signs
Temp Pulse Resp BP Pulse Ox
97.8 F 70 17 137/70 97
01/24/24 07:52 01/24/24 07:52 01/24/24 07:52 01/24/24 07:52 01/24/24 07:52
Intake and Output
01/23/24 01/24/24 01/25/24
06:59 06:59 06:59
Intake Total 1200 / 1200 660 / 660
Output Total 1974 / 1974 182 / 182
Balance -775 / -775 -1160 / -1160
SaO2: 97
Nasal Cannula flow liters per minute: 3
Physical Exam
General: Respiratory Distress (n) and Comfortable
HEENT: Normocephalic, Anicteric and Moist Mucous Membranes
Cardiovascular: Regular Rhythm
Respiratory: Wheeze (n), Crackles, Rhonchi, Non-Labored Respirations, Accessory Resp Muscle Use (n) and Stridor
GI: Soft, Non Distended and Non Tender
Neurology: Awake, Alert, No Motor Deficits and Lethargic
Skin: Warm, Good Color, Cyanosis (n), Jaundice (n) and Rash
Labs/Micro/Reports
Lab Data
01/23/24 08:02
Laboratory Results
01/23/24
11:43
pH 7.41
pCO2 88 H*
pO2 105
HCO3 55.8 H*
O2 Delivery Level
Microbiology
01/20/24 09:39 Sputum Respiratory Culture - Final
Usual Respiratory Sundar
01/20/24 09:39 Sputum Gram Stain - Final
01/19/24 23:41 Nose MRSA Screen - Final
No Methicillin Resistant Staphylococcus aureus isolated.
--- NOTE | 2024-01-24 10:28 | W.PN.CD ---
Today's Communication / Plan
-
Start metoprolol succinate 25 mg daily
RHC/LHC tomorrow
Continue gentle diuresis
Impression / Plan
-
78-year-old male past medical history of hypertension, hyperlipidemia, COPD on home O2, DARRON, carotid endarterectomy, and heart failure with reduced ejection fraction (LVEF 20-25%) who presents to the ER with episodes of orthostatic lightheadedness
in the setting of recently increased diuretics.
Tractor Operator: Dr. Newman
Acute on chronic heart failure with reduced ejection fraction (LVEF 20-25%)
-TTE from March 2023 showed mildly reduced LVEF. OP echo 1 week ago with severely reduced LVEF. Has never had cath.
-Not on any GDMT yet as outpatient. CM has priced meds. Will review with patient.
--For now start Metoprolol succinate 25 mg daily
-Continue gentle diuresis with 60 mg IV Lasix daily.
-Weight on admission 101.5 kg, now 98.2 kg (unknown dry weight). Difficult volume exam given body habitus.
-Plan for RHC/LHC tomorrow; NPO after midnight
Chronic hypercapnic respiratory failure
-Elevated HCO3 is likely compensatory
-May need acetazolamide if HCO3 remains elevated.
-Appreciate pulmonary evaluation
-Continue nightly BiPAP
Dizziness, resolved
-Likely orthostasis due to recent adjustment of diuretics as an outpatient
- Watch tele => so far just 1-2 very short runs of AT, no AV block
- Orthostatic vitals are mildly + but not dramatic
Bifascicular block
- RBBB/LAFB
- Watch on tele
Suspected cellulitis
HTN
PAD: carotid endarterectomy
Chronic LE edema
- Perhaps not all from heart failure
Spine stenosis
Knee DJD
hx obstructive sleep apnea
hx GERD
Fibromyalgia
Subjective:
Breathing feels somewhat better this morning. Up and walking around yesterday. No events on telemetry. Spoke to primary clinical sciences professor (Dr. Newman). See plan for records.
Data:
Echo 01/20/2024: LVEF 20-25%, top normal in size, mild LVH, global LV hypo, RV normal size/fxn, mild MR, PASP could not be estimated, IVC not seen, decline in LVEF is new from 2017
Physical Exam
Vital Signs/Labs
Vital Signs
Temp Pulse Resp BP Pulse Ox
97.8 F 70 17 137/70 97
01/24/24 07:52 01/24/24 07:52 01/24/24 07:52 01/24/24 07:52 01/24/24 09:41
01/23/24 01/24/24 01/25/24
06:59 06:59 06:59
Actual Weight 98.458 kg 98.231 kg
01/23/24 08:02
Magnesium 2.2 mg/dl (1.6-2.3) 01/23/24 08:02
01/19/24
19:27
[id number]-E-Gqyvwjcdsmb Pept 1360
Physical Exam
Constitutional: No acute distress and Comfortable
Cardiovascular: Rhythm & rate is regular, Pedal edema present, S1S2 is normal, Murmur/rub/gallop absent and Other (Difficult to assess JVD due to body habitus)
Respiratory: Respiratory effort normal and Lungs clear to auscul.
Data Reviewed
-
Date of Service: January 24, 2024
Medical Decision Making: External Notes, Reviewed Test Results, Tests Ordered, Independent Historian Assessment, Test Interpretation and Review of Case with other Provider
EKG: Tracing Personally Visualized and interpreted
Echo: Report Reviewed by me
Labs: Labs Reviewed by me
Old Records: Requested and Reviewed
--- NOTE | 2024-01-24 10:48 | CM ---
CM reviewed chart, received call from patients friend, Connor, requesting evaluation for [facility]. CM discussed therapy recommendations for home PT vs SNF, discussed patient will need an acute rehab diagnosis. Patient friend still requesting [facility] eval, TT
sent to Hospitalist. Connor requesting referral to [facility], placed in [facility]. CM spoke with Violette from [facility] and Luisa from [facility]- both facilities can accept pending patient discharge status/bed availability,
relayed to Connor. CM will continue to follow for all discharge planning needs.
Plan; SNF when stable, patient/friend requesting [facility] eval.
[2024-01-24] MEDS: SPIRIVA RESPIMAT 2.5 MCG 2 PUFF INH (11:49)
[2024-01-24] MEDS: STRIVERDI RESPIMAT 2 PUFF INH (11:49)
--- NOTE | 2024-01-24 11:57 | W.PN.UPDATE ---
Update Note
Progress Note Update
Discussed decline in LVEF with patient. We discussed ischemic versus nonischemic cause. Recommendation for cardiac catheterization discussed with patient.
Patient confirms aspirin allergy. He had aspirin 'a lifetime ago' and it resulted in a rash.
Records requested from multiple facilities by Dr. Lin.
Patient had a cardiac catheterization in December,. It was performed by Dr. Levon Burk. It demonstrated nonobstructive coronary artery disease. Ostial LAD <10% stenosis.
Conclusions:
1 Nonobstructive coronary artery disease.
2 RA 23 RV 48/23 PA 45/26/35
3 PCWP 26 LV 151/28
4 CO 6.6 CI 2.9
LHC/RHC tomorrow. NPO after midnight. No preprocedure aspirin given allergy.
[2024-01-24] MEDS: TOPROL XL 25 MG PO (12:04)
[2024-01-24 12:17] LABS: Blood Urea Nitrogen 15 mg/dl (9-20); Calcium 8.7 mg/dl (8.4-10.2); Chloride 79 mmol/L (98-107); Estimated Creatinine Clearance 73 ml/min; Glucose 109 mg/dl (70-99); Potassium 3.6 mmol/L (3.5-5.1); Sodium 139 mmol/L (135-145); eGFR > 60.00
[2024-01-24 12:50] LABS: Carbon Dioxide 49 mmol/L (22-30)
[2024-01-24] MEDS: FLEXERIL 5 MG PO (16:29)
[2024-01-24] MEDS: LOVENOX 40 MG SC (17:19)
[2024-01-24] MEDS: DIAMOX 250 MG PO (20:11)
[2024-01-24] MEDS: KLONOPIN 0.25 MG PO (21:35)
[2024-01-25] VITALS (16 sets, daily range): BP systolic 99–177; BP diastolic 40–80; PULSE 2–59; BMI 36.8
[2024-01-25] MEDS: TYLENOL 1000 MG PO ×2 (05:01→20:17)
--- NOTE | 2024-01-25 07:10 | W.PN.CD ---
Today's Communication / Plan
-
Left/Right cardiac catheterization today.
Adjust diuretics based on filling pressures.
GDMT as hemodynamics/cost will permit.
Impression / Plan
-
Impression/Plan: 78-year-old male with history of hypertension, hyperlipidemia, COPD on home O2, DARRON, carotid endarterectomy, and heart failure with reduced ejection fraction (LVEF 20-25%) who presents to the ER with episodes of orthostatic
lightheadedness in the setting of recently increased diuretics.
#Heart failure with reduced ejection fraction (LVEF 20-25%)
-Acute on chronic.
-TTE from March 2023 showed mildly reduced LVEF. OP echo 1 week ago with severely reduced LVEF.
-Cardiac catheterization in 2018 showed non-obstructive CAD, severely elevated filling pressures.
-GDMT as hemodynamics and outpatient cost will permit.
-Currently tolerating metoprolol succinate 25 mg daily. Our next medication should be low dose valsartan, followed by dapagliflozin 10 mg daily. I am wary of ARNi given orthostasis.
-Continue gentle diuresis with 60 mg IV Lasix daily. We will adjust diuretics based on invasive filling pressures.
-Daily weights. We will need to establish a new dry weight.
-Right/Left heart catheterization today. No aspirin given allergy.
#COPD/Hypercapnic respiratory failure
-Chronic.
-Elevated HCO3 is likely compensatory, rising in light of contraction alkylosis. HCO3 = 49.
-Acetazolamide given last night. Labs pending.
-Appreciate pulmonary evaluation.
-Continue tiotropium. Use albuterol PRN.
-Continue nightly BiPAP.
#Dizziness
-Resolved.
-Likely orthostasis due to recent adjustment of diuretics as an outpatient.
-Watch tele => so far just 1-2 very short runs of AT, no AV block.
-Orthostatic vitals are mildly + but not dramatic.
#Bifascicular block
-RBBB/LAFB.
-Monitor telemetry.
#PAD/ROWENA
-Chronic.
-S/P carotid endarterectomy.
#Chronic LE edema
- Perhaps not all from heart failure.
#Suspected cellulitis
#HTN
#Spine stenosis
#Knee DJD
#hx obstructive sleep apnea
#hx GERD
#Fibromyalgia
Gyroscopic Instrument Mechanic: Dr. Barboza
Subjective/Interval History:
Tolerated BiPAP overnight.
Given acetazolamide last night.
Weight is down 0.9 kg.
SaO2 = 97% on 3LNC.
Data:
CXR, 01/19/2024:
IMPRESSION:
Limited study with extremely low lung volumes.
Pulmonary vascularity at least top normal. Cannot exclude mild CHF versus acute pulmonary edema.
Mild bibasilar opacity most likely representing subsegmental atelectasis. Cannot exclude left lower lobe pneumonia.
Echo 01/20/2024:
CONCLUSIONS
Upper normal left ventricular chamber size. Mild concentric left ventricular
hypertrophy. Severely reduced left ventricular systolic function. Left
ventricular ejection fraction is 20-25% by visual estimate. Global
hypokinesis. Stage I diastolic dysfunction suggestive of abnormal relaxation.
Normal right ventricular size and function.
Mild mitral regurgitation.
Mildly dilated aortic root 4.1 cm.
Compared to previous echo 07/13/16, the LVEF has decreased from 60% to 20-25%.
Cardiac Catheterization, 12/2017 (Dr. Burk):
Conclusions:
1. Nonobstructive coronary artery disease.
2. RA = 23, RV = 48/23, PA = 45/26/35.
3. PCWP = 26, LV = 151/28.
4. CO 6.6/CI 2.9.
Physical Exam
Vital Signs/Labs
Vital Signs
Temp Pulse Resp BP Pulse Ox
36.6 C 58 16 127/53 97
01/25/24 03:50 01/25/24 03:50 01/25/24 03:50 01/25/24 03:50 01/25/24 03:50
01/23/24 01/24/24 01/25/24
11:59 11:59 11:59
Actual Weight 98.458 kg 98.231 kg 97.159 kg
01/23/24 08:02
Magnesium 2.2 mg/dl (1.6-2.3) 01/23/24 08:02
01/19/24
19:27
Sxa-O-Osomfmxuutw Pept 1360
Physical Exam
Constitutional: No acute distress and Comfortable
EENT: Anicteric and Moist mucous membranes
Cardiovascular: Rhythm & rate is regular, Pedal edema is absent, JVD pressure is normal, S1S2 is normal and Murmur/rub/gallop absent
Respiratory: Respiratory effort normal, Lungs clear to auscul., Wheeze Absent, Crackles Absent and Rhonchi Absent
GI: Soft, Distention absent, Flat, Non tender and Normal bowel sounds
Neuro/Psych: AO x 3
Other: Cath Site
Data Reviewed
-
Date of Service: January 25, 2024
Medical Decision Making: Reviewed Test Results, Independent Historian Assessment and Test Interpretation
EKG: Tracing Personally Visualized and interpreted and Report Reviewed by me
Echo: Report Reviewed by me
X-Ray/CT/US/MRI/NUC/PET: Image Personally Visualized and interpreted and Report Reviewed by me
Medical Tests (PFT, Pathology etc): Report Reviewed by me
Labs: Labs Reviewed by me
Old Records: Reviewed
[2024-01-25] MEDS: STRIVERDI RESPIMAT 2 PUFF INH (07:51)
[2024-01-25] MEDS: SPIRIVA RESPIMAT 2.5 MCG 2 PUFF INH (07:51)
[2024-01-25] MEDS: TOPROL XL PO (08:15)
[2024-01-25] MEDS: WELLBUTRIN REGULAR RELEASE 100 MG PO ×2 (08:20→20:17)
[2024-01-25] MEDS: CYMBALTA DELAYED RELEASE 20 MG PO (08:20)
[2024-01-25] MEDS: DIAMOX 250 MG PO ×2 (08:20→20:16)
[2024-01-25] MEDS: CRESTOR 20 MG PO (08:21)
[2024-01-25] MEDS: LASIX 60 MG IV (08:21)
[2024-01-25] MEDS: HYDROPHOR 1 APPLIC TOPICAL ×2 (08:24→20:17)
--- NOTE | 2024-01-25 08:45 | W.PN.HOSP.TC ---
Today's Communication/Plan
-
Await blood work result of today
Change Klonopin to PRN
NPO for heart cath today
Assessment / Plan
Assessment / Plan
Physical Exam
General: Not in acute distress
HEENT: Normocephalic
Respiratory: no wheezes, limited
Cardiac: S1/S2 and Regular Rhythm, + murmur
GI: Soft and Non Tender. Positive bowel sounds.
Musculoskeletal:less bilateral LE edema.
Skin: Warm and Dry; No Rash
Neuro: AO x 3, he followed commands.
Psych: Calm
Assessment/Plan
Mr. Pedro Mota is a 78 yo man with hx HTN, obesity, DARRON, COPD with chronic respiratory failure on 3L, HLD, HFpEF, GERD, Anxiety, carotid stenosis s/p bilateral CEA presents to the ER with multiple episodes of lightheadedness when going from
a seated to standing position this evening. He was started on antibiotics for LLE cellulitis yesterday and is found to be volume overloaded on exam.
#Pre-Syncope
Orthostatic Hypotension -- RESOLVED OF MOST RECENT ORTHOSTATIC VITAL SIGNS
-patient clearly volume overloaded on exam
-PRN midodrine to c/w diuretic Tx.
-PT/OT
# Acute on Chronic hypercapnic respiratory failure likely due to obesity hypoventilation syndrome/obstructive sleep apnea.
Non compliance with C pap Tx , hope to improve with use of anxiolytic at night
Chronic lower extremity edema
Acute on chronic Heart Failure with reduced ejection fraction
-TTE 07/28 with EF 60-65%, now Echocardiogram 20-25%/mild concentric left ventricular hypertrophy. Global hypokinesis. Stage I diastolic dysfunction. Normal right ventricular size and function. Significantly reduced ejection fraction
compared to 2017
-s/p Lasix 60mg IV in the ER, continue IV Lasix 60 mg QD
-patient was recently changed from Lasix to Bumex oral as outpatient
-strict I/O, daily weights ----> weights are overall decreased ( lost almost 5 kg)
-Per cardiology, plan for R and L cardiac cath today 01/24
-cardiology consulted, appreciate their evaluation and recommendations
# High MCV
Check Vitamin B12, Folate, await results
# Hypokalemia, replace
Recheck
Await blood work result
# Suspected lower Ext cellulitis on admission
No fever, no leukocytosis, no tenderness, will stop IV Ancef ( he received 4 days of IV Abx)
# Acute on chronic HFrEF/ RBBB/LAFB
Contracture alkalosis, reducing Lasix
#COPD
Not in exacerbation.
Hx of Chronic Hypoxic Respiratory Failure
-UROGYNAECOLOGIST inhalers
- Appreciate pulmonary input. Recommend outpatient pulmonary follow-up. Hold off on Diamox as pCO2 is high
#Hyperlipidemia
-UROGYNAECOLOGIST statin
#Anxiety/Depression
-UROGYNAECOLOGIST Bupropion BID, Duloxetine
#GERD
#Carotid Stenosis s/p bilateral CEA
-patient states he is allergic to aspirin, he was on Plavix in past
-UROGYNAECOLOGIST statin
-Carotid ultrasound : No significant carotid plaque is identified bilaterally.
#Obesity
DVT Prophylaxis: lovenox subQ
DNR - discussed on admission
Total time spent to see the patient on the floor, examine the patient, review data and lab results, discuss treatment plan with patient, nursing staff around 55 minutes
Anticipated Discharge: 24 - 48 hours
Subjective/Interval History
-
Date of Service: January 25, 2024
No chest pain
No sob
Objective Data
-
Labs:
Laboratory Results
01/25/24
07:32
Sodium Pending
Potassium Pending
Chloride Pending
Carbon Dioxide Pending
BUN Pending
Creatinine Pending
Glucose Pending
Calcium Pending
Vital Signs:
Vital Signs
Temp Pulse Resp BP Pulse Ox
97.7 F 52 22 177/75 93
01/25/24 07:30 01/25/24 08:15 01/25/24 07:30 01/25/24 08:21 01/25/24 07:30
I&O
01/24/24 01/25/24 01/26/24
06:59 06:59 06:59
Intake Total 660 / 660 1020 / 1020
Output Total 1820 / 1820 2200 / 2200
Balance -1160 / -1160 -1180 / -1180
[2024-01-25 08:51] LABS: Blood Urea Nitrogen 14 mg/dl (9-20); Calcium 8.7 mg/dl (8.4-10.2); Chloride 82 mmol/L (98-107); Estimated Creatinine Clearance 65 ml/min; Glucose 85 mg/dl (70-99); Potassium 3.1 mmol/L (3.5-5.1); Sodium 139 mmol/L (135-145); eGFR > 60.00
[2024-01-25 09:17] LABS: Carbon Dioxide 46 mmol/L (22-30)
--- NOTE | 2024-01-25 09:21 | W.PN.PUL.V3 ---
Today's Communication / Plan
-
Diamox
BiPAP
Cardiac catheterization
Assessment
-
78-year-old man admitted with presyncopal episodes, lower extremity edema, found to have lower extremity cellulitis. Discovered to have new onset decreased on ejection fraction/systolic heart failure ejection fraction 25%. Cardiology recommending
diuretics as well as right and left catheterization. ABG found to have chronic hypercapnic respiratory failure with pCO2 greater than 80.
Chronic hypercapnic respiratory failure likely due to obesity hypoventilation syndrome/obstructive sleep apnea.
Chest x-ray reviewed: Showed, low lung volumes. Changes consistent with mild pulmonary edema.Bibasilar atelectasis.
ABG 01/21/2024: 7.38/90/81
ABG 07/14/2016: 7.39/65/38
Chronic lower extremity edema
New onset systolic heart failure:
Echocardiogram 20-25%/mild concentric left ventricular hypertrophy. Global hypokinesis. Stage I diastolic dysfunction. Normal right ventricular size and function. MR. Significantly reduced ejection fraction compared to 2017.
Cellulitis left lower extremity-in [facility]
Conditions present prior admission:
GERD
Obesity
Anxiety/depression
Hyperlipidemia
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
on ANORO
He was seen back in 2017 in our office and lost to follow-up.
Chronic lymphedema
Plan
Pulmonary status slowly improving
Supplemental oxygen as needed-assess discharge supplemental oxygen needs
BiPAP 15/5 while in the hospital-encourage use-some agitation and difficulties wearing at nighttime-Klonopin has helped
Low-dose Klonopin added by primary team-monitor for oversedation and progressive hypercapnia-appears to be doing well with it
Follow occasional ABG
Chronic hypercapnia suspected-see ABGs-nearly pCO2 70 in 2017
ABG 01/23/2024--88/105/7.41
Aspiration precautions
Incentive spirometry
Nebulizers-if unable to use inhalers-currently on Spiriva
Patient has end-stage COPD with multiple emergency room and hospitalizations with chief complaint of shortness of breath and respiratory failure. The patient has a pCO2 of 88 on 2 L oxygen and needs continuous oxygen supplementation. Patient
reports shortness of breath with minimal activity and reports significant reduction in activities of daily living. Due to the patient's COPD and hypoventilation patient is at risk of worsening chronic respiratory failure. I have considered
bilevel, bilevel ST and bilevel VAPS therapy and they have been ruled out due to the patient's worsening condition. The patient now requires a unique mode of ventilation not offered by less costly options. The patient requires a device that will
not fail in the event of power failure and also portable for mobility within the home when needed. Due to the patient's worsening condition I am prescribing noninvasive ventilation therapy to decrease the chance of continued unplanned expensive
medical encounters including physician office visits, emergency/urgent care treatments and hospital readmissions.
Echocardiogram without evidence for pulmonary hypertension
Continue diuresis as tolerated
Monitor renal function, electrolytes, intake/output, lower extremity edema and weight
Replace electrolytes as needed
Continue with Diamox with significant metabolic alkalotic component
Repeat ABG Tuesday or Tuesday
Cardiology following-correspondence reviewed
Consider right and left heart catheterization-scheduled 01/25/2024
Cultures reviewed
Sputum with usual respiratory sundar
Empiric antibiotics for cellulitis
Monitor blood sugar
Insulin supplementation as needed
DVT prophylaxis-on Lovenox
Nutrition with aspiration precautions
Early mobilization
If tolerating noninvasive ventilation then will try to arrange in the outpatient setting
Close friend is the only relative available at this point. He was updated at the bedside by Dr. Finn 01/22/2024
Outpatient pulmonary/sleep disorders evaluation
Subjective Data
-
Date of Service:
Date of Service: January 25, 2024
Chief Complaint: Pulmonary Follow Up and Dyspnea Follow Up
Subjective:
Sleepy, arousable, oriented, no complaints of shortness of breath, tolerating BiPAP, no chest pain or abdominal pain
Review of Systems
General: Other (Per HPI)
Objective Data
Data Reviewed
Vital Signs / I&O:
Vital Signs
Temp Pulse Resp BP Pulse Ox
97.7 F 52 22 177/75 93
01/25/24 07:30 01/25/24 08:15 01/25/24 07:30 01/25/24 08:21 01/25/24 07:30
Intake and Output
01/24/24 01/25/24 01/26/24
06:59 06:59 06:59
Intake Total 660 / 660 1020 / 1020
Output Total 1820 / 1820 2200 / 2200
Balance -1160 / -1160 -1180 / -1180
SaO2: 93
Nasal Cannula flow liters per minute: 4
Physical Exam
General: Respiratory Distress (n) and Comfortable
HEENT: Normocephalic, Anicteric and Moist Mucous Membranes
Cardiovascular: Regular Rhythm
Respiratory: Wheeze (n), Crackles, Rhonchi, Non-Labored Respirations, Accessory Resp Muscle Use (n) and Stridor
GI: Soft, Non Distended and Non Tender
Neurology: Awake, Alert, No Motor Deficits and Lethargic
Skin: Warm, Good Color, Cyanosis (n), Jaundice (n) and Rash
Labs/Micro/Reports
Lab Data
01/23/24 08:02
01/25/24 07:32
Microbiology
01/20/24 09:39 Sputum Respiratory Culture - Final
Usual Respiratory Sundar
01/20/24 09:39 Sputum Gram Stain - Final
[2024-01-25 10:31] LABS: Folate 7.5 ng/ml (2.76-20); Vitamin B12 522 pg/ml (239-931)
--- NOTE | 2024-01-25 10:48 | CM ---
Addendum entered by Ayah Vega 01/25/24 15:09:
Patient seen with friend, Connor, discussed [facility] able to accept when stable, patient agreeable to SNF upon discharge. CM spoke with Delilah in admissions at [facility], , confirmed can accept on discharge.
Original Note:
CM reviewed chart, patient off floor, for cardiac cath today. CM received call from patients friend, primary contact, Connor, asking for update on patient, requesting call from Hospitalist. CM placed call to [facility]- will review referral and
update CM if able to accept patient when stable for d/c. [facility] based on bed availability/day of discharge. CM will continue to follow for all discharge planning needs.
Plan; SNF when medically stable, no auth required.
--- NOTE | 2024-01-25 10:57 | ITS.CL.CATH ---
[facility] [facility] [employer] - Catheterization
Cardiac Catheterization
Procedure Report:
CARDIAC CATHETERIZATION REPORT
Date of Procedure: 01/25/2024
Referring: John Lin M.D.
Indication: Worsening cardiomyopathy, unclear volume status.
PROCEDURE:
1. Right heart catheterization.
2. Left heart catheterization.
3. Coronary angiography.
ACCESS:
6 Cymro right radial artery.
5 Cymro right antecubital vein using a modified Seldinger technique under ultrasound guidance.
CATHETERS:
1. 5 Cymro balloon wedge.
2. 5 Cymro JR4.
3. 5 Cymro JL 3.5.
HEMODYNAMIC DATA
Weight (kg): 97.2
AO (s/d/x mmHg): 120/58/79
LV (s/x mmHg): 126/15 (A wave to 26)
PCWP (a/v/x mmHg): 16/15/15
PA (s/d/x mmHg): 35/15/22
RV (s/x mmHg): 39/10
RA (a/v/x mmHg): 13
SVC SvO2 (%): 75.1
PA SvO2 (%): 68.1
SaO2 (%): 99.0
Hbg (g/dL): 12.0
CO (L/min): 4.31
CI (L/min/m2): 2.14
TPG (mmHg): 7
PVR (Santiago Units): 1.62
SVR (dynes*seconds*cm^-5): 1281
AVO2 Diff (Volume %): 5.04
AV gradient (x, mmHg): None.
AV area (cm2): Normal.
LEFT VENTRICULOGRAPHY: Not performed.
CORONARY ANGIOGRAPHY
Dominance: Right.
Left Main: Normal size, bifurcating vessel. There is a 30% ostial lesion. There is a 20%, densely calcified distal tapering.
LAD: Normal size vessel giving rise to 3 significant diagonals. There is no significant coronary artery disease.
Ramus: Congenitally absent.
Circumflex: Normal size, nondominant vessel that is essentially a single obtuse marginal supplying the entire inferolateral wall with a small upper branch. There is no coronary artery disease.
RCA: Large size, dominant vessel with a large posterolateral arcade. There are minor luminal irregularities in the ostium/proximal margin of the RCA.
INTERVENTIONS
None.
Closure Device: Vascular band for the right radial artery, manual pressure for the right antecubital vein.
Radiation dose (mGy): 540.57
DAP (cm2.Gy): 34.5947
Fluoroscopy time (minutes): 4.7
Sedation time (minutes): 0
CONCLUSIONS:
1. Right dominant circulation with a 30% ostial left main coronary artery lesion, followed by a 20%, densely calcified lesion in the distal left main and luminal irregularities in the ostial/proximal RCA.
2. Normal filling pressures (LVEDP = 15 mmHg, PCWP = 15 mmHg at 97.2 kg) with evidence of diastolic dysfunction (A wave to 26 mmHg).
3. Preserved cardiac function (cardiac index = 2.14 L/min/m�).
4. Severe hypoxic respiratory failure, noncardiogenic. Prior to cardiac catheterization, the patient became acutely hypoxic while transitioning from the stretcher to the [employer] table in a recumbent position. He required a wedge and 15 L of
oxygen by nonrebreather to recover his oxygen saturation, which dipped to 50% at its lowest.
RECOMMENDATIONS:
1. Expectant management after cardiac catheterization via right radial/antecubital approach.
2. Limited weight bearing on the right wrist for one week.
3. We should consider 97.2 kg to be the patient's dry weight, perhaps even slightly underfilled given his degree of LV dysfunction.
4. Guideline directed medical therapy as hemodynamics will tolerate.
5. Convert IV diuretics to bumetanide 2 mg p.o. daily (rather than twice daily).
7. Aggressive primary prevention with high-dose, high potency statin. Goal LDL <55.
8. Further evaluation by pulmonology to reassess severity of pulmonary disease given chronic hypoxic respiratory failure, acutely decompensated in the [employer].
Copy to: John Lin M.D., Pedro Drew M.D.
Kuldeep Kramer DO, FACC, FACP
--- NOTE | 2024-01-25 11:49 | PTCARENOTE ---
3ml removed from band post procedure per protocol. blood started to leak, band was re-inflated and NP. Johnston notified.
[2024-01-25] MEDS: TYLENOL PO (13:34)
--- NOTE | 2024-01-25 15:00 | PTCARENOTE ---
Addendum entered by Mónica Mariano RN 01/25/24 15:01:
awake to voice and stimulation. Patient agreed to wear bipap while sleeping and removed it 30 mins after wearing. Patient encouraged to order lunch and needed assistance with placing meal. patient continues to fall asleep while talking.
Original Note:
patient is somnolent throughout the day, awakes to voive and disoriented to time.
[2024-01-25] MEDS: FLEXERIL 5 MG PO (16:44)
[2024-01-25] MEDS: LOVENOX 40 MG SC (17:22)
[2024-01-26] VITALS (8 sets, daily range): BP systolic 103–127; BP diastolic 50–77; PULSE 2–55; O2SAT 100; BMI 35.8
[2024-01-26] MEDS: STRIVERDI RESPIMAT 2 PUFF INH (07:27)
[2024-01-26] MEDS: SPIRIVA RESPIMAT 2.5 MCG 2 PUFF INH (07:27)
[2024-01-26] MEDS: CYMBALTA DELAYED RELEASE 20 MG PO (07:56)
[2024-01-26] MEDS: BUMEX 2 MG PO (07:56)
[2024-01-26] MEDS: DIAMOX 250 MG PO ×2 (07:59→19:58)
[2024-01-26] MEDS: CRESTOR 20 MG PO (07:59)
[2024-01-26] MEDS: WELLBUTRIN REGULAR RELEASE 100 MG PO ×2 (08:02→19:59)
[2024-01-26] MEDS: TOPROL XL 25 MG PO (08:03)
[2024-01-26] MEDS: HYDROPHOR 1 APPLIC TOPICAL ×2 (08:03→19:59)
[2024-01-26 08:29] LABS: Hematocrit 40.9 % (39.0-52.0); Hemoglobin 12.4 g/dL (13.0-18.0); Mean Corp Hgb Conc. 30.3 g/dL (33.0-37.0); Mean Corpuscular Hgb 31.2 pg (27.0-31.0); Mean Corpuscular Volume 102.8 fL (80.0-94.0); Mean Platelet Volume 11.7 fL (7.4-10.4); Platelet Count 143 10^3/uL (130-400); Red Blood Cell Count 3.98 10^6/uL (4.70-6.10); Red Cell Dist. Width 13.2 % (11.5-14.5); White Blood Cell Count 8.1 10^3/uL (4.8-10.8)
[2024-01-26 08:59] LABS: Blood Urea Nitrogen 16 mg/dl (9-20); Chloride 84 mmol/L (98-107); Estimated Creatinine Clearance 58 ml/min; Glucose 92 mg/dl (70-99); Potassium 3.2 mmol/L (3.5-5.1); Sodium 139 mmol/L (135-145); eGFR > 60.00
[2024-01-26 09:09] LABS: Carbon Dioxide 44 mmol/L (22-30)
--- NOTE | 2024-01-26 09:09 | W.PN.CD ---
Today's Communication / Plan
-
Normal filling pressures at cath
appears dry weight 97kg ( ? accuracy of todays weigh of 94Kg)
monitor weight on oral diuretic
Optimize tx of lung disease as per hebrew cantor. If hebrew cantor feels the degree of hypoxemia is out of proportion to degree of hypoxemia then could consider PE study.
Impression / Plan
-
Impression/Plan: 78-year-old male with history of hypertension, hyperlipidemia, COPD on home O2, DARRON, carotid endarterectomy, and heart failure with reduced ejection fraction (LVEF 20-25%) who presents to the ER with episodes of orthostatic
lightheadedness in the setting of recently increased diuretics.
#Heart failure with reduced ejection fraction (LVEF 20-25%)
-Acute on chronic.
-TTE from March 2023 showed mildly reduced LVEF. OP echo 1 week ago with severely reduced LVEF.
-Cardiac catheterization in 2018 showed non-obstructive CAD, severely elevated filling pressures.
-GDMT as hemodynamics and outpatient cost will permit.
-Currently tolerating metoprolol succinate 25 mg daily. Our next medication should be low dose valsartan, followed by dapagliflozin 10 mg daily. I am wary of ARNi given orthostasis.
-Cath with normal filling pressures. Patient transition to oral diuretic.. Weight on day of catheterization was 97 kg. Weight reported today was 94 kg which puts accuracy of today's weight and question
-Right/Left heart [id number]/13/24 - Nonobstructive CAD, PCWP 15 and CI 2.1. Patient felt to be euvolemic with normal filling pressures and was felt to have noncardiogenic respiratory failure. Patient became hypoxemic transferring from the
stretcher to the Oxidation Operator table in a recumbent position and required a wedge and 15 L oxygen.
#COPD/Hypercapnic respiratory failure
-Chronic.
-Normal filling pressures on cardiac catheterization yesterday but patient had issues with hypoxemia as noted on cardiac catheterization report.
-Treatment as directed by pulmonary
- If hebrew cantor feels the degree of hypoxemia is out of proportion to degree of hypoxemia then could consider PE study. Venous LE US negative this admit.
#Dizziness
-Resolved.
-Likely orthostasis due to recent adjustment of diuretics as an outpatient.
-Watch tele => so far just 1-2 very short runs of AT, no AV block.
-Orthostatic vitals are mildly + but not dramatic.
#Bifascicular block
-RBBB/LAFB.
-Monitor telemetry.
#PAD/ROWENA
-Chronic.
-S/P carotid endarterectomy.
#Chronic LE edema
- Perhaps not all from heart failure.
#Suspected cellulitis
#HTN
#Spine stenosis
#Knee DJD
#hx obstructive sleep apnea
#hx GERD
#Fibromyalgia
Wine Pasteurizer: Dr. Barboza
Subjective/Interval History:
Tolerated BiPAP overnight.
Given acetazolamide last night.
Weight is down 0.9 kg.
SaO2 = 97% on 3LNC.
Data:
CXR, 01/19/2024:
IMPRESSION:
Limited study with extremely low lung volumes.
Pulmonary vascularity at least top normal. Cannot exclude mild CHF versus acute pulmonary edema.
Mild bibasilar opacity most likely representing subsegmental atelectasis. Cannot exclude left lower lobe pneumonia.
Echo 01/20/2024:
CONCLUSIONS
Upper normal left ventricular chamber size. Mild concentric left ventricular
hypertrophy. Severely reduced left ventricular systolic function. Left
ventricular ejection fraction is 20-25% by visual estimate. Global
hypokinesis. Stage I diastolic dysfunction suggestive of abnormal relaxation.
Normal right ventricular size and function.
Mild mitral regurgitation.
Mildly dilated aortic root 4.1 cm.
Compared to previous echo 07/13/16, the LVEF has decreased from 60% to 20-25%.
Cardiac Catheterization, 12/2017 (Dr. Burk):
Conclusions:
1. Nonobstructive coronary artery disease.
2. RA = 23, RV = 48/23, PA = 45/26/35.
3. PCWP = 26, LV = 151/28.
4. CO 6.6/CI 2.9.
Physical Exam
Vital Signs/Labs
Vital Signs
Temp Pulse Resp BP Pulse Ox
97.6 F 62 16 123/54 55
01/26/24 07:30 01/26/24 08:03 01/26/24 07:34 01/26/24 07:59 01/26/24 07:34
01/25/24 01/26/24 01/27/24
06:59 06:59 06:59
Actual Weight 97.159 kg 94.432 kg
01/26/24 07:47
01/26/24 07:47
Magnesium 2.2 mg/dl (1.6-2.3) 01/23/24 08:02
01/19/24
19:27
Iwq-T-Cugwzbndsrv Pept 1360
Physical Exam
Constitutional: No acute distress
EENT: Anicteric
Cardiovascular: Rhythm & rate is regular
Respiratory: Wheeze Absent and Other (fine crackles at bases )
GI: Soft and Non tender
Neuro/Psych: Alert
Data Reviewed
-
Date of Service: January 26, 2024
Medical Decision Making: Reviewed Test Results
Echo: Report Reviewed by me
Medical Tests (PFT, Pathology etc): Report Reviewed by me
Labs: Labs Reviewed by me
--- NOTE | 2024-01-26 09:29 | W.PN.HOSP.TC ---
Today's Communication/Plan
-
Will need SNF with Bi Pap setting
remains poor compliance with Bi pap
Replace K
Assessment / Plan
Assessment / Plan
Physical Exam
General: Not in acute distress
HEENT: Normocephalic
Respiratory: no wheezes, limited
Cardiac: S1/S2 and Regular Rhythm, + murmur
GI: Soft and Non Tender. Positive bowel sounds.
Musculoskeletal:less bilateral LE edema.
Skin: Warm and Dry; No Rash
Neuro: AO x 3, he followed commands.
Psych: Calm
Assessment/Plan
Mr. Pedro Mota is a 78 yo man with hx HTN, obesity, DARRON, COPD with chronic respiratory failure on 3L, HLD, HFpEF, GERD, Anxiety, carotid stenosis s/p bilateral CEA presents to the ER with multiple episodes of lightheadedness when going from
a seated to standing position this evening. He was started on antibiotics for LLE cellulitis yesterday and is found to be volume overloaded on exam.
#Pre-Syncope
Orthostatic Hypotension -- RESOLVED OF MOST RECENT ORTHOSTATIC VITAL SIGNS
-patient clearly volume overloaded on exam
-PRN midodrine to c/w diuretic Tx.
-PT/OT
# Acute on Chronic hypercapnic respiratory failure likely due to obesity hypoventilation syndrome/obstructive sleep apnea.
Non compliance with C pap Tx , hope to improve with use of anxiolytic at night
Chronic lower extremity edema
Acute on chronic Heart Failure with reduced ejection fraction
-TTE 07/28 with EF 60-65%, now Echocardiogram 20-25%/mild concentric left ventricular hypertrophy. Global hypokinesis. Stage I diastolic dysfunction. Normal right ventricular size and function. Significantly reduced ejection fraction
compared to 2017
-s/p Lasix 60mg IV in the ER, continue IV Lasix 60 mg QD
-patient was recently changed from Lasix to Bumex oral as outpatient
-daily weights ----> weights are overall decreased ( lost almost 5 kg)
-Per cardiology, R and L cardiac cath 01/24 showed mild CAD, normal filling pressure, evidence of diastolic dysfunction, preserved cardiac index. Recommend to consider 97.2 kg of the dry weight. Aggressive primary prevention with high-dose/high
potency statin therapy, continue to follow with web content specialist.
-cardiology consulted, appreciate their evaluation and recommendations
# High MCV
Normal Vitamin B12, Folate. Possible underlying BM disease. Normal TSH, no hx of celiac disease. Normal LFT.
# Hypokalemia, replace
# Suspected lower Ext cellulitis on admission
No fever, no leukocytosis, no tenderness, stopped IV Ancef ( he received 4 days of IV Abx)
# Acute on chronic HFrEF/ RBBB/LAFB
Bumex Tx
Contracture alkalosis, started on Diamox
#COPD
Not in exacerbation.
Hx of Chronic Hypoxic Respiratory Failure
-SHIP CARPENTER inhalers
- Appreciate pulmonary input. Recommend outpatient pulmonary follow-up.
#Hyperlipidemia
-SHIP CARPENTER statin
#Anxiety/Depression
-SHIP CARPENTER Bupropion BID, Duloxetine
#GERD
#Carotid Stenosis s/p bilateral CEA
-patient states he is allergic to aspirin, he was on Plavix in past
-SHIP CARPENTER statin
-Carotid ultrasound : No significant carotid plaque is identified bilaterally.
#Obesity
DVT Prophylaxis: lovenox subQ
DNR - discussed on admission
Total time spent to see the patient on the floor, examine the patient, review data and lab results, discuss treatment plan with patient, nursing staff around 55 minutes
Anticipated Discharge: Within 24 hours
Subjective/Interval History
-
Date of Service: January 26, 2024
He is not complaint with Bi pap
Objective Data
-
Labs:
Laboratory Results
01/26/24
07:47
WBC 8.1
Hgb 12.4 L
Hct 40.9
Plt Count 143
Sodium 139
Potassium 3.2 L
Chloride 84 L
Carbon Dioxide 44 H
BUN 16
Creatinine 1.1
Glucose 92
Calcium 9.0
Vital Signs:
Vital Signs
Temp Pulse Resp BP Pulse Ox
97.6 F 62 16 123/54 55
01/26/24 07:30 01/26/24 08:03 01/26/24 07:34 01/26/24 07:59 01/26/24 07:34
I&O
01/25/24 01/26/24 01/27/24
06:59 06:59 06:59
Intake Total 1020 / 1020 960 / 960
Output Total 2200 / 2200 1999 / 1999
Balance -1180 / -1180 -1040 / -1040
--- NOTE | 2024-01-26 10:46 | W.PN.PUL.V3 ---
Today's Communication / Plan
-
.
Wean oxygen.
Euvolemic.
BiPAP as needed.
CT chest to rule out PE-low clinical suspicion
Assessment
-
78-year-old man admitted with presyncopal episodes, lower extremity edema, found to have lower extremity cellulitis. Discovered to have new onset decreased on ejection fraction/systolic heart failure ejection fraction 25%. Cardiology recommending
diuretics as well as right and left catheterization. ABG found to have chronic hypercapnic respiratory failure with pCO2 greater than 80.
Chronic hypercapnic respiratory failure likely due to obesity hypoventilation syndrome/obstructive sleep apnea.
Chest x-ray reviewed: Showed, low lung volumes. Changes consistent with mild pulmonary edema.Bibasilar atelectasis.
ABG 01/21/2024: 7.38/90/81
ABG 07/14/2016: 7.39/65/38
Chronic lower extremity edema
New onset systolic heart failure:
Echocardiogram 20-25%/mild concentric left ventricular hypertrophy. Global hypokinesis. Stage I diastolic dysfunction. Normal right ventricular size and function. MR. Significantly reduced ejection fraction compared to 2017.
Cellulitis left lower extremity-in [facility]
Conditions present prior admission:
GERD
Obesity
Anxiety/depression
Hyperlipidemia
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
on ANORO
He was seen back in 2017 in our office and lost to follow-up.
Chronic lymphedema
Plan
Pulmonary status slowly improving-Still quite tenuous with increased FiO2 requirements-currently on 6 L and desaturates on room air rapidly
Supplemental oxygen as needed-assess discharge supplemental oxygen needs
BiPAP 15/5 while in the hospital-encourage use-some agitation and difficulties wearing at nighttime-Klonopin has helped
Low-dose Klonopin added by primary team-monitor for oversedation and progressive hypercapnia-appears to be doing well with it
Follow occasional ABG
Chronic hypercapnia suspected-see ABGs-nearly pCO2 70 in 2017
ABG 01/23/2024--88/105/7.41
Aspiration precautions
Incentive spirometry
Nebulizers-if unable to use inhalers-currently on Spiriva
Patient has end-stage COPD with multiple emergency room and hospitalizations with chief complaint of shortness of breath and respiratory failure. The patient has a pCO2 of 88 on 2 L oxygen and needs continuous oxygen supplementation. Patient
reports shortness of breath with minimal activity and reports significant reduction in activities of daily living. Due to the patient's COPD and hypoventilation patient is at risk of worsening chronic respiratory failure. I have considered
bilevel, bilevel ST and bilevel VAPS therapy and they have been ruled out due to the patient's worsening condition. The patient now requires a unique mode of ventilation not offered by less costly options. The patient requires a device that will
not fail in the event of power failure and also portable for mobility within the home when needed. Due to the patient's worsening condition I am prescribing noninvasive ventilation therapy to decrease the chance of continued unplanned expensive
medical encounters including physician office visits, emergency/urgent care treatments and hospital readmissions.
Echocardiogram without evidence for pulmonary hypertension
Continue diuresis as tolerated
Monitor renal function, electrolytes, intake/output, lower extremity edema and weight
Replace electrolytes as needed
Continue with Diamox with significant metabolic alkalotic component
Repeat ABG Tuesday or Tuesday
Cardiology following-correspondence reviewed-reviewed with Dr. Dr. Patel
Right and left heart catheterization-scheduled 01/25/2024-PA 35/15, RA 13, PCWP-16, 30% ostial left main followed by 20% distal left main and normal filling pressures with cardiac index 2.1
Suspect hypoxemia is related to underlying severe COPD.
Lower extremity ultrasound on the left 01/19/24-no evidence for DVT.
CT chest to rule out PE to be complete-overall low clinical suspicion
Cultures reviewed
Sputum with usual respiratory sundar
Empiric antibiotics for cellulitis
Monitor blood sugar
Insulin supplementation as needed
DVT prophylaxis-on Lovenox
Nutrition with aspiration precautions
Early mobilization
If tolerating noninvasive ventilation then will try to arrange in the outpatient setting
Close friend is the only relative available at this point. He was updated at the bedside by Dr. Finn 01/22/2024
Outpatient pulmonary/sleep disorders evaluation
Subjective Data
-
Date of Service:
Date of Service: January 26, 2024
Chief Complaint: Pulmonary Follow Up and Dyspnea Follow Up
Subjective:
More alert, bed, denies any shortness of breath at rest, chest pain, pleurisy, abdominal pain
Review of Systems
General: Other ( per HPI)
Objective Data
Data Reviewed
Vital Signs / I&O:
Vital Signs
Temp Pulse Resp BP Pulse Ox
97.6 F 62 16 123/54 55
01/26/24 07:30 01/26/24 08:03 01/26/24 07:34 01/26/24 07:59 01/26/24 07:34
Intake and Output
01/25/24 01/26/24 01/27/24
06:59 06:59 06:59
Intake Total 1020 / 1020 960 / 960
Output Total 2200 / 2200 1999 / 1999
Balance -1180 / -1180 -1040 / -1040
SaO2: 55
Nasal Cannula flow liters per minute: 4
Physical Exam
General: Respiratory Distress (n) and Comfortable
HEENT: Normocephalic, Anicteric and Moist Mucous Membranes
Cardiovascular: Regular Rhythm
Respiratory: Wheeze (n), Crackles, Rhonchi, Non-Labored Respirations, Accessory Resp Muscle Use (n) and Stridor
GI: Soft, Non Distended and Non Tender
Neurology: Awake, Alert, No Motor Deficits and Lethargic
Skin: Warm, Good Color, Cyanosis (n), Jaundice (n) and Rash
Labs/Micro/Reports
Lab Data
01/26/24 07:47
01/26/24 07:47
[2024-01-26] MEDS: TYLENOL 1000 MG PO (11:04)
[2024-01-26] MEDS: KLOR-CON 20 MEQ PO ×2 (11:04→19:58)
[2024-01-26] MEDS: TYLENOL PO ×3 (13:39→21:16)
[2024-01-26] MEDS: LOVENOX 40 MG SC (17:04)
[2024-01-27] VITALS (7 sets, daily range): BP systolic 113–136; BP diastolic 47–75; PULSE 73–104; O2SAT 92; BMI 36.1
[2024-01-27] MEDS: TYLENOL 1000 MG PO ×2 (06:11→13:20)
[2024-01-27 07:50] LABS: Blood Urea Nitrogen 17 mg/dl (9-20); Calcium 8.9 mg/dl (8.4-10.2); Chloride 86 mmol/L (98-107); Estimated Creatinine Clearance 54 ml/min; Glucose 112 mg/dl (70-99); Potassium 3.5 mmol/L (3.5-5.1); Sodium 140 mmol/L (135-145); eGFR > 60.00
[2024-01-27] MEDS: STRIVERDI RESPIMAT 2 PUFF INH (08:15)
[2024-01-27] MEDS: SPIRIVA RESPIMAT 2.5 MCG 2 PUFF INH (08:15)
[2024-01-27 08:18] LABS: Carbon Dioxide 40 mmol/L (22-30)
[2024-01-27] MEDS: FLEXERIL 5 MG PO (08:38)
--- NOTE | 2024-01-27 08:38 | W.PN.HOSP.TC ---
Today's Communication/Plan
-
dc planning
I updated his friend
Assessment / Plan
Assessment / Plan
Physical Exam
General: Not in acute distress
HEENT: Normocephalic
Respiratory: no wheezes, limited
Cardiac: S1/S2 and Regular Rhythm, + murmur
GI: Soft and Non Tender. Positive bowel sounds.
Musculoskeletal:less bilateral LE edema.
Skin: Warm and Dry; No Rash
Neuro: AO x 3, he followed commands.
Psych: Calm
Assessment/Plan
Mr. Pedro Mota is a 78 yo man with hx HTN, obesity, DARRON, COPD with chronic respiratory failure on 3L, HLD, HFpEF, GERD, Anxiety, carotid stenosis s/p bilateral CEA presents to the ER with multiple episodes of lightheadedness when going from
a seated to standing position this evening. He was started on antibiotics for LLE cellulitis yesterday and is found to be volume overloaded on exam.
#Pre-Syncope
Orthostatic Hypotension -- RESOLVED OF MOST RECENT ORTHOSTATIC VITAL SIGNS
-patient clearly volume overloaded on exam
-PRN midodrine to c/w diuretic Tx.
-PT/OT
# Acute on Chronic hypercapnic respiratory failure likely due to obesity hypoventilation syndrome/obstructive sleep apnea. CT chest : no PE
Non compliance with C pap Tx , hope to improve with use of anxiolytic at night
Chronic lower extremity edema
Acute on chronic Heart Failure with reduced ejection fraction
-TTE 07/28 with EF 60-65%, now Echocardiogram 20-25%/mild concentric left ventricular hypertrophy. Global hypokinesis. Stage I diastolic dysfunction. Normal right ventricular size and function. Significantly reduced ejection fraction
compared to 2017
-s/p Lasix 60mg IV in the ER, continue IV Lasix 60 mg QD
-patient was recently changed from Lasix to Bumex oral as outpatient
-daily weights ----> weights are overall decreased ( lost almost 5 kg)
-Per cardiology, R and L cardiac cath 01/24 showed mild CAD, normal filling pressure, evidence of diastolic dysfunction, preserved cardiac index. Recommend to consider 97.2 kg of the dry weight. Aggressive primary prevention with high-dose/high
potency statin therapy, continue to follow with affiliate marketing specialist.
-cardiology consulted, appreciate their evaluation and recommendations
# High MCV
Normal Vitamin B12, Folate. Possible underlying BM disease. Normal TSH, no hx of celiac disease. Normal LFT.
# Hypokalemia, replaced
# Suspected lower Ext cellulitis on admission
No fever, no leukocytosis, no tenderness, stopped IV Ancef ( he received 4 days of IV Abx)
# Acute on chronic HFrEF/ RBBB/LAFB
Bumex Tx
Contracture alkalosis, started on Diamox
#COPD
Not in exacerbation.
Hx of Chronic Hypoxic Respiratory Failure
-RESEARCH DEVELOPMENT MANAGER inhalers
- Appreciate pulmonary input. Recommend outpatient pulmonary follow-up.
#Hyperlipidemia
-RESEARCH DEVELOPMENT MANAGER statin
#Anxiety/Depression
-RESEARCH DEVELOPMENT MANAGER Bupropion BID, Duloxetine
#GERD
#Carotid Stenosis s/p bilateral CEA
-patient states he is allergic to aspirin, he was on Plavix in past
-RESEARCH DEVELOPMENT MANAGER statin
-Carotid ultrasound : No significant carotid plaque is identified bilaterally.
#Obesity
DVT Prophylaxis: lovenox subQ
DNR - discussed on admission
Total time spent to see the patient on the floor, examine the patient, review data and lab results, discuss treatment plan with patient, nursing staff around 55 minutes
Anticipated Discharge: Within 24 hours
Subjective/Interval History
-
Date of Service: January 27, 2024
No chest pain
No sob
He kept Bipap last night
Objective Data
-
Labs:
Laboratory Results
01/27/24
06:45
Sodium 140
Potassium 3.5
Chloride 86 L
Carbon Dioxide 40 H
BUN 17
Creatinine 1.2
Glucose 112 H
Calcium 8.9
Vital Signs:
Vital Signs
Temp Pulse Resp BP Pulse Ox
97.1 F 56 16 122/67 92
01/27/24 07:00 01/27/24 08:36 01/27/24 08:36 01/27/24 07:00 01/27/24 08:36
I&O
01/26/24 01/27/24 01/28/24
06:59 06:59 06:59
Intake Total 960 / 960 1260 / 1260
Output Total 1999 1325 / 1325
Balance -1040 / -1040 -65 / -65
[2024-01-27] MEDS: TOPROL XL 25 MG PO (08:49)
[2024-01-27] MEDS: BUMEX 2 MG PO (08:49)
[2024-01-27] MEDS: DIAMOX 250 MG PO (08:49)
[2024-01-27] MEDS: KLOR-CON 20 MEQ PO ×2 (08:50→20:46)
[2024-01-27] MEDS: HYDROPHOR 1 APPLIC TOPICAL ×2 (08:50→20:45)
[2024-01-27] MEDS: WELLBUTRIN REGULAR RELEASE 100 MG PO (08:51)
[2024-01-27] MEDS: CYMBALTA DELAYED RELEASE 20 MG PO (08:51)
[2024-01-27] MEDS: CRESTOR 20 MG PO (08:51)
--- NOTE | 2024-01-27 09:23 | W.PN.CD ---
Today's Communication / Plan
-
-Continue metoprolol succinate 25 mg daily.
-Continue Bumex 2 mg daily.
-No further cardiac recommendations at this time; outpatient follow-up with Primary Desktop Manager (Dr. Barboza).
Impression / Plan
-
Impression/Plan: 78-year-old male with history of hypertension, hyperlipidemia, COPD on home O2, DARRON, carotid endarterectomy, and heart failure with reduced ejection fraction (LVEF 20-25%) who presents to the ER with episodes of orthostatic
lightheadedness in the setting of recently increased diuretics.
#Heart failure with reduced ejection fraction (LVEF 20-25%)
-Acute on chronic.
-TTE from March 2023 showed mildly reduced LVEF. OP echo 1 week ago with severely reduced LVEF.
-Cardiac catheterization in 2018 showed non-obstructive CAD, severely elevated filling pressures.
-GDMT as hemodynamics and outpatient cost will permit.
-Continue metoprolol succinate 25 mg daily.
-Further GDMT limited by low blood pressure.
-Cath with normal filling pressures.
-Right/Left heart weucrxgyhdswenx12/13/24 - Nonobstructive CAD, PCWP 15 and CI 2.1. Patient felt to be euvolemic with normal filling pressures and was felt to have noncardiogenic respiratory failure.
-Continue Bumex 2 mg daily.
#COPD/Hypercapnic respiratory failure
-Relatively stable; treatment as directed by pulmonary/primary team.
#Bifascicular block
-RBBB/LAFB.
-Relatively stable.
#PAD/ROWENA
-Chronic.
-S/P carotid endarterectomy.
#Chronic LE edema
- Perhaps not all from heart failure.
#Suspected cellulitis
#HTN
#Spine stenosis
#Knee DJD
#hx obstructive sleep apnea
#hx GERD
#Fibromyalgia
Desktop Manager: Dr. Barboza
Subjective/Interval History:
No major events overnight. No cardiac complaints this a.m.
Data:
CXR, 01/19/2024:
IMPRESSION:
Limited study with extremely low lung volumes.
Pulmonary vascularity at least top normal. Cannot exclude mild CHF versus acute pulmonary edema.
Mild bibasilar opacity most likely representing subsegmental atelectasis. Cannot exclude left lower lobe pneumonia.
Echo 01/20/2024:
CONCLUSIONS
Upper normal left ventricular chamber size. Mild concentric left ventricular
hypertrophy. Severely reduced left ventricular systolic function. Left
ventricular ejection fraction is 20-25% by visual estimate. Global
hypokinesis. Stage I diastolic dysfunction suggestive of abnormal relaxation.
Normal right ventricular size and function.
Mild mitral regurgitation.
Mildly dilated aortic root 4.1 cm.
Compared to previous echo 07/13/16, the LVEF has decreased from 60% to 20-25%.
Cardiac Catheterization, 12/2017 (Dr. Burk):
Conclusions:
1. Nonobstructive coronary artery disease.
2. RA = 23, RV = 48/23, PA = 45/26/35.
3. PCWP = 26, LV = 151/28.
4. CO 6.6/CI 2.9.
Physical Exam
Vital Signs/Labs
Vital Signs
Temp Pulse Resp BP Pulse Ox
97.1 F 56 16 122/67 92
01/27/24 07:00 01/27/24 08:36 01/27/24 08:36 01/27/24 07:00 01/27/24 08:36
01/26/24 01/27/24 01/28/24
06:59 06:59 06:59
Actual Weight 94.432 kg 95.283 kg
01/26/24 07:47
01/27/24 06:45
Magnesium 2.2 mg/dl (1.6-2.3) 01/23/24 08:02
01/19/24
19:27
Frp-C-Mzzeqtskvic Pept 1360
Physical Exam
Constitutional: No acute distress and Comfortable
EENT: Anicteric
Cardiovascular: Rhythm & rate is regular, Pedal edema is absent, Systolic murmur absent and S1S2 is normal
Respiratory: Respiratory effort normal and Rhonchi Present
GI: Soft
Neuro/Psych: Alert
Other: Skin (warm)
Data Reviewed
-
Date of Service: January 27, 2024
EKG: Tracing Personally Visualized and interpreted (Telemetry: Sinus rhythm)
Labs: Labs Reviewed by me
--- NOTE | 2024-01-27 10:12 | W.PN.PUL.V3 ---
Today's Communication / Plan
-
.
Wean oxygen.
BiPAP as tolerated.
Discharge planning
Pulmonary will sign off-. Please call with questions
Assessment
-
78-year-old man admitted with presyncopal episodes, lower extremity edema, found to have lower extremity cellulitis. Discovered to have new onset decreased on ejection fraction/systolic heart failure ejection fraction 25%. Cardiology recommending
diuretics as well as right and left catheterization. ABG found to have chronic hypercapnic respiratory failure with pCO2 greater than 80.
Chronic hypercapnic respiratory failure likely due to obesity hypoventilation syndrome/obstructive sleep apnea.
Chest x-ray reviewed: Showed, low lung volumes. Changes consistent with mild pulmonary edema.Bibasilar atelectasis.
ABG 01/21/2024: 7.38/90/81
ABG 07/14/2016: 7.39/65/38
Chronic lower extremity edema
New onset systolic heart failure:
Echocardiogram 20-25%/mild concentric left ventricular hypertrophy. Global hypokinesis. Stage I diastolic dysfunction. Normal right ventricular size and function. MR. Significantly reduced ejection fraction compared to 2017.
Cellulitis left lower extremity-in [facility]
Conditions present prior admission:
GERD
Obesity
Anxiety/depression
Hyperlipidemia
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
on ANORO
He was seen back in 2017 in our office and lost to follow-up.
Chronic lymphedema
Plan
His respiratory status continues to improve
Supplemental oxygen as needed-assess discharge supplemental oxygen needs-currently on 4 L
BiPAP 15/5 while in the hospital-encourage use-some agitation and difficulties wearing at nighttime-Klonopin had helped-avoid oversedation
Follow occasional ABG
Chronic hypercapnia suspected-see ABGs-nearly pCO2 70 in 2017
ABG 01/23/2024--88/105/7.41
Aspiration precautions
Incentive spirometry
Nebulizers-if unable to use inhalers-currently on Spiriva
Patient has end-stage COPD with multiple emergency room and hospitalizations with chief complaint of shortness of breath and respiratory failure. The patient has a pCO2 of 88 on 2 L oxygen and needs continuous oxygen supplementation. Patient
reports shortness of breath with minimal activity and reports significant reduction in activities of daily living. Due to the patient's COPD and hypoventilation patient is at risk of worsening chronic respiratory failure. I have considered
bilevel, bilevel ST and bilevel VAPS therapy and they have been ruled out due to the patient's worsening condition. The patient now requires a unique mode of ventilation not offered by less costly options. The patient requires a device that will
not fail in the event of power failure and also portable for mobility within the home when needed. Due to the patient's worsening condition I am prescribing noninvasive ventilation therapy to decrease the chance of continued unplanned expensive
medical encounters including physician office visits, emergency/urgent care treatments and hospital readmissions.
Echocardiogram without evidence for pulmonary hypertension
Continue diuresis as tolerated
Monitor renal function, electrolytes, intake/output, lower extremity edema and weight
Replace electrolytes as needed
Continue with Diamox with significant metabolic alkalotic component
Repeat ABG Tuesday or Tuesday
Cardiology following-correspondence reviewed-reviewed with Dr. Dr. Patel on 01/26/24-today. Cardiology has signed off
Right and left heart catheterization-scheduled 01/25/2024-PA 35/15, RA 13, PCWP-16, 30% ostial left main followed by 20% distal left main and normal filling pressures with cardiac index 2.1
Suspect hypoxemia is related to underlying severe COPD.
Lower extremity ultrasound on the left 01/19/24-no evidence for DVT.
CT chest to rule out PE to be complete- 01/26/24-no pulmonary embolism, mild pulmonary edema
Cultures reviewed
Sputum with usual respiratory sundar
Empiric antibiotics for cellulitis
Monitor blood sugar
Insulin supplementation as needed
DVT prophylaxis-on Lovenox
Nutrition with aspiration precautions
Early mobilization.
Respiratory status is stabilized-discharge planning-pulmonary will sign off-Please call with questions
If tolerating noninvasive ventilation then will try to arrange in the outpatient setting
Close friend is the only relative available at this point. He was updated at the bedside by Dr. Finn 01/22/2024
Outpatient pulmonary/sleep disorders evaluation
Subjective Data
-
Date of Service:
Date of Service: January 27, 2024
Chief Complaint: Pulmonary Follow Up and Dyspnea Follow Up
Subjective:
Feels better, no complaints shortness breath, chest pain or abdominal pain
Review of Systems
General: Other ( per HPI)
Objective Data
Data Reviewed
Vital Signs / I&O:
Vital Signs
Temp Pulse Resp BP Pulse Ox
97.1 F 56 16 122/67 92
01/27/24 07:00 01/27/24 08:36 01/27/24 08:36 01/27/24 07:00 01/27/24 08:36
Intake and Output
01/26/24 01/27/24 01/28/24
06:59 06:59 06:59
Intake Total 960 / 960 1260 / 1260
Output Total 1999 / 1999 1325 / 1325
Balance -1040 / -1040 -65 / -65
SaO2: 92
Nasal Cannula flow liters per minute: 4
Physical Exam
General: Respiratory Distress (n) and Comfortable
HEENT: Normocephalic, Anicteric and Moist Mucous Membranes
Cardiovascular: Regular Rhythm
Respiratory: Wheeze (n), Crackles, Rhonchi, Non-Labored Respirations, Accessory Resp Muscle Use (n) and Stridor
GI: Soft, Non Distended and Non Tender
Neurology: Awake, Alert, No Motor Deficits and Lethargic
Skin: Warm, Good Color, Cyanosis (n), Jaundice (n) and Rash
Labs/Micro/Reports
Lab Data
01/26/24 07:47
01/27/24 06:45
--- NOTE | 2024-01-27 10:53 | CM ---
Addendum entered by Ayah Vega 01/27/24 11:02:
transport scheduled for 1:00 p.m. tomorrow 01/28/24.
Original Note:
CM reviewed chart, per Hospitalist, clear for discharge tomorrow for SNF. CM spoke with Delilah from [facility] [phone], able to accept tomorrow, will set up transport today for discharge tomorrow. Patient seen eating breakfast, agreeable
to discharge tomorrow. IMM verbally reviewed, agreeable to plan, provided with copy, IMM placed in chart. Patient confirms he will bring BIPAP machine to SNF. CM will continue to follow for all discharge planning needs.
Plan; [facility] tomorrow, ambulance transport requested.
[facility]
Report: [phone], ask for Ishmael AMADOR
--- NOTE | 2024-01-27 13:33 | PN.CDI ---
Addendum entered and electronically signed by Marbin Levi MD 01/27/24 13:46:
Acute on chronic hypercapnic and hypoxic respiratory failure
Original Note:
CDI
- -
CDI:
Physician Documentation Request
Admit Date: 01/19/24 22:08
Dear Doctor Amita,
Clinical Indicators:
Patient admitted with acute on chronic HFrEF.
PMH includes COPD with chronic respiratory failure on 3L.
01/24 Host And Hostess Report, 'Prior to cardiac catheterization, the patient became acutely hypoxic while transitioning from the stretcher to the Host And Hostess table in a recumbent position. He required a wedge and 15 L of oxygen by non rebreather to recover
his oxygen saturation, which dipped to 50% at its lowest.'
01/26 PN, 'Acute on Chronic hypercapnic respiratory failure...'
02 requirements:
01/26/24
03:17 01/26/24
07:30 01/26/24
23:51
Nasal Cannula flow liters per minute 5 6 5
01/27/24
04:00 01/27/24
07:00
Nasal Cannula flow liters per minute 5 5
Please clarify the type and acuity of respiratory failure:
Acute on chronic hypercapnic and hypoxic respiratory failure
Acute on chronic hypercapnic respiratory failure only
Other, please specify
Use of terms such as suspected, likely, concern for, or probable (associated with a specific diagnosis that is being evaluated, monitored, or treated as if it exists) are acceptable and can be coded in the inpatient setting, when documented at the
time of discharge.
Thank you,
Jolene Hess RN BSN
CDI Specialist
available via tiger text
Please use your independent medical judgment in providing your response.
[2024-01-27] MEDS: LOVENOX 40 MG SC (18:27)
[2024-01-27] MEDS: WELLBUTRIN REGULAR RELEASE PO ×2 (20:46→20:54)
[2024-01-27] MEDS: TYLENOL PO (21:46)
[2024-01-28] MEDS: TYLENOL 1000 MG PO ×2 (05:22→21:02)
[2024-01-28 06:00] VITALS: BMI 35.7
[2024-01-28 07:00] VITALS: BP 117/57; BP 117/58; BP 122/58; PULSE 51; PULSE 52; PULSE 61
[2024-01-28] MEDS: SPIRIVA RESPIMAT 2.5 MCG 2 PUFF INH (08:04)
[2024-01-28] MEDS: STRIVERDI RESPIMAT 2 PUFF INH (08:04)
--- NOTE | 2024-01-28 09:48 | W.PN.HOSP.TC ---
Today's Communication/Plan
-
dc
Assessment / Plan
Assessment / Plan
Physical Exam
General: Not in acute distress
HEENT: Normocephalic
Respiratory: no wheezes, limited
Cardiac: S1/S2 and Regular Rhythm, + murmur
GI: Soft and Non Tender. Positive bowel sounds.
Musculoskeletal:less bilateral LE edema.
Skin: Warm and Dry; No Rash
Neuro: AO x 3, he followed commands.
Psych: Calm
Assessment/Plan
Mr. Pedro Mota is a 78 yo man with hx HTN, obesity, DARRON, COPD with chronic respiratory failure on 3L, HLD, HFpEF, GERD, Anxiety, carotid stenosis s/p bilateral CEA presents to the ER with multiple episodes of lightheadedness when going from
a seated to standing position this evening. He was started on antibiotics for LLE cellulitis yesterday and is found to be volume overloaded on exam.
#Pre-Syncope
Orthostatic Hypotension -- RESOLVED OF MOST RECENT ORTHOSTATIC VITAL SIGNS
-patient clearly volume overloaded on exam
-PRN midodrine to c/w diuretic Tx.
-PT/OT
# Acute on Chronic hypercapnic respiratory failure likely due to obesity hypoventilation syndrome/obstructive sleep apnea. CT chest : no PE
Non compliance with C pap Tx , hope to improve with use of anxiolytic at night
Chronic lower extremity edema
Acute on chronic Heart Failure with reduced ejection fraction
-TTE 07/28 with EF 60-65%, now Echocardiogram 20-25%/mild concentric left ventricular hypertrophy. Global hypokinesis. Stage I diastolic dysfunction. Normal right ventricular size and function. Significantly reduced ejection fraction
compared to 2017
-s/p Lasix 60mg IV in the ER, continue IV Lasix 60 mg QD
-patient was recently changed from Lasix to Bumex oral as outpatient
-daily weights ----> weights are overall decreased ( lost almost 5 kg)
-Per cardiology, R and L cardiac cath 01/24 showed mild CAD, normal filling pressure, evidence of diastolic dysfunction, preserved cardiac index. Recommend to consider 97.2 kg of the dry weight. Aggressive primary prevention with high-dose/high
potency statin therapy, continue to follow with pre billing specialist.
-cardiology consulted, appreciate their evaluation and recommendations
# High MCV
Normal Vitamin B12, Folate. Possible underlying BM disease. Normal TSH, no hx of celiac disease. Normal LFT.
# Hypokalemia, replaced
# Suspected lower Ext cellulitis on admission
No fever, no leukocytosis, no tenderness, stopped IV Ancef ( he received 4 days of IV Abx)
# Acute on chronic HFrEF/ RBBB/LAFB
Bumex Tx
Contracture alkalosis, started on Diamox
#COPD
Not in exacerbation.
Hx of Chronic Hypoxic Respiratory Failure
-PLANNING ANALYST inhalers
- Appreciate pulmonary input. Recommend outpatient pulmonary follow-up.
#Hyperlipidemia
-PLANNING ANALYST statin
#Anxiety/Depression
-PLANNING ANALYST Bupropion BID, Duloxetine
#GERD
#Carotid Stenosis s/p bilateral CEA
-patient states he is allergic to aspirin, he was on Plavix in past
-PLANNING ANALYST statin
-Carotid ultrasound : No significant carotid plaque is identified bilaterally.
#Obesity
DVT Prophylaxis: lovenox subQ
DNR - discussed on admission
Total time spent to see the patient on the floor, examine the patient, review data and lab results, discuss treatment plan with patient, nursing staff around 55 minutes
Anticipated Discharge: Today
Subjective/Interval History
-
Date of Service: January 28, 2024
No complaints
He did not keep Bi Pap last night
Objective Data
-
Vital Signs:
Vital Signs
Temp Pulse Resp BP Pulse Ox
97.5 F 52 16 117/58 100
01/28/24 07:00 01/28/24 08:07 01/28/24 08:07 01/28/24 07:00 01/28/24 08:07
I&O
01/27/24 01/28/24 01/29/24
06:59 06:59 06:59
Intake Total 1260 / 1260 360 / 360
Output Total 1325 / 1325 500 / 500
Balance -65 / -65 -140 / -140
[2024-01-28] MEDS: HYDROPHOR 1 APPLIC TOPICAL ×2 (11:19→21:00)
[2024-01-28] MEDS: KLOR-CON 20 MEQ PO ×2 (11:21→21:01)
[2024-01-28] MEDS: CYMBALTA DELAYED RELEASE 20 MG PO (11:22)
[2024-01-28] MEDS: BUMEX 2 MG PO (11:23)
[2024-01-28] MEDS: WELLBUTRIN REGULAR RELEASE 100 MG PO ×2 (11:23→21:01)
[2024-01-28] MEDS: CRESTOR 20 MG PO (11:23)
[2024-01-28] MEDS: TOPROL XL 25 MG PO (11:24)
--- NOTE | 2024-01-28 13:54 | CM ---
Plan was for patient to go to [facility] today however patient's POA and friend stated he is not want patient placed there and is requesting referrals to [facility], [address] [phone]
[phone], and [facility] referrals sent.
Plan; Skilled placement.
[2024-01-28] MEDS: TYLENOL PO (14:01)
[2024-01-28 15:00] VITALS: BP 115/49
--- NOTE | 2024-01-28 15:55 | CHAP ---
Mr. Mota had requested a sizing end bander visit. He was very sleepy when I came, but still welcomed prayer. Emotional and spiritual support provided.
[2024-01-28] MEDS: LOVENOX 40 MG SC (17:45)
[2024-01-28 23:00] VITALS: BP 114/59
[2024-01-28 23:33] VITALS: BMI 35.7
[2024-01-28 23:50] VITALS: BMI 35.7
[2024-01-29 00:02] VITALS: BMI 35.7
[2024-01-29 04:39] VITALS: BMI 35.2
--- NOTE | 2024-01-29 05:01 | PTCARENOTE ---
Patient wore own cpap from 00:00 to 01:00 and refused to re apply. 02 at 4 liters placed back on patient. No resp distress noted.
[2024-01-29] MEDS: TYLENOL 1000 MG PO ×2 (05:33→13:41)
[2024-01-29] MEDS: STRIVERDI RESPIMAT 2 PUFF INH (07:42)
[2024-01-29] MEDS: SPIRIVA RESPIMAT 2.5 MCG 2 PUFF INH (07:42)
[2024-01-29 08:20] VITALS: BP 130/66
[2024-01-29 08:22] VITALS: BP 105/50; BP 112/56; BP 130/66; PULSE 50; PULSE 52
--- NOTE | 2024-01-29 08:56 | W.PN.HOSP.TC ---
Today's Communication/Plan
-
c/w Bumex
Use Tylenol , Flexeril for back pain
Encourage use of BiPap
DC planning
Assessment / Plan
Assessment / Plan
Physical Exam
General: Not in acute distress
HEENT: Normocephalic
Respiratory: no wheezes, limited
Cardiac: S1/S2 and Regular Rhythm, + murmur
GI: Soft and Non Tender. Positive bowel sounds.
Musculoskeletal:less bilateral LE edema.
Skin: Warm and Dry; No Rash
Neuro: AO x 3, he followed commands.
Psych: Calm
Assessment/Plan
Mr. Pedro Mota is a 78 yo man with hx HTN, obesity, DARRON, COPD with chronic respiratory failure on 3L, HLD, HFpEF, GERD, Anxiety, carotid stenosis s/p bilateral CEA presents to the ER with multiple episodes of lightheadedness when going from
a seated to standing position this evening. He was started on antibiotics for LLE cellulitis yesterday and is found to be volume overloaded on exam.
#Pre-Syncope
Orthostatic Hypotension -- RESOLVED OF MOST RECENT ORTHOSTATIC VITAL SIGNS
-patient clearly volume overloaded on exam
-PRN midodrine to c/w diuretic Tx.
-PT/OT
# Acute on Chronic hypercapnic respiratory failure likely due to obesity hypoventilation syndrome/obstructive sleep apnea. CT chest : no PE
Non compliance with C pap Tx.
Per pulmonary: end-stage COPD with multiple emergency room visits and hospitalizations
Chronic lower extremity edema
Acute on chronic Heart Failure with reduced ejection fraction
-TTE 07/28 with EF 60-65%, now Echocardiogram 20-25%/mild concentric left ventricular hypertrophy. Global hypokinesis. Stage I diastolic dysfunction. Normal right ventricular size and function. Significantly reduced ejection fraction
compared to 2017
-s/p Lasix 60mg IV in the ER, s/p IV Lasix 60 mg QD , was recently changed from Lasix to Bumex oral as outpatient. cardiology started him back on Bumex.
- Daily weight.
-Per cardiology, R and L cardiac cath 01/24 showed mild CAD, normal filling pressure, evidence of diastolic dysfunction, preserved cardiac index. Recommend to consider 97.2 kg of the dry weight. Aggressive primary prevention with high-dose/high
potency statin therapy, continue to follow with rac specialist.
-cardiology consulted, appreciate their evaluation and recommendations
# High MCV
Normal Vitamin B12, Folate. Possible underlying BM disease. Normal TSH, no hx of celiac disease. Normal LFT.
# Hypokalemia, replaced
# Suspected lower Ext cellulitis on admission
No fever, no leukocytosis, no tenderness, stopped IV Ancef ( he received 4 days of IV Abx)
# Acute on chronic HFrEF/ RBBB/LAFB
Bumex Tx
Contracture alkalosis, started on Diamox then stopped.
#COPD
Not in exacerbation.
Hx of Chronic Hypoxic Respiratory Failure
-AVIATION ENGINEER inhalers
- Appreciate pulmonary input. Recommend outpatient pulmonary follow-up.
#Hyperlipidemia
-AVIATION ENGINEER statin
#Anxiety/Depression
-AVIATION ENGINEER Bupropion BID, Duloxetine
#GERD
#Carotid Stenosis s/p bilateral CEA
-patient states he is allergic to aspirin, he was on Plavix in past
-AVIATION ENGINEER statin
-Carotid ultrasound : No significant carotid plaque is identified bilaterally.
#Obesity
DVT Prophylaxis: lovenox subQ
DNR - discussed on admission
Total time spent to see the patient on the floor, examine the patient, review data and lab results, discuss treatment plan with patient, his friend (POA), adult protective caseworkermanager instrumentation staff around 61 minutes
Anticipated Discharge: Within 24 hours
Subjective/Interval History
-
Date of Service: January 29, 2024
No chest pain
No sob
Objective Data
-
Vital Signs:
Vital Signs
Temp Pulse Resp BP Pulse Ox
97.4 F 50 18 130/66 99
01/29/24 08:20 01/29/24 08:20 01/29/24 08:20 01/29/24 08:20 01/29/24 08:20
I&O
01/28/24 01/29/24 01/30/24
06:59 06:59 06:59
Intake Total 360 / 360 720 / 720
Output Total 500 / 500 1015 / 1015
Balance -140 / -140 -295 / -295
[2024-01-29] MEDS: BUMEX 2 MG PO (09:54)
[2024-01-29] MEDS: TOPROL XL 25 MG PO (09:54)
[2024-01-29] MEDS: CRESTOR 20 MG PO (09:54)
[2024-01-29] MEDS: KLOR-CON 20 MEQ PO ×2 (09:54→21:08)
[2024-01-29] MEDS: WELLBUTRIN REGULAR RELEASE 100 MG PO ×2 (09:54→21:08)
[2024-01-29] MEDS: HYDROPHOR 1 APPLIC TOPICAL ×2 (09:55→21:08)
[2024-01-29] MEDS: CYMBALTA DELAYED RELEASE 20 MG PO (09:55)
[2024-01-29] MEDS: REFRESH EYE DROPS (PF) 1 DROPS OPHTH (14:23)
[2024-01-29 16:20] VITALS: BP 131/60
[2024-01-29] MEDS: LOVENOX 40 MG SC (17:57)
[2024-01-29 20:30] VITALS: BMI 35.2
[2024-01-29] MEDS: KLONOPIN 0.25 MG PO (21:15)
[2024-01-29] MEDS: TYLENOL PO ×2 (22:28→22:32)
[2024-01-29 23:25] VITALS: BP 114/62
[2024-01-30] MEDS: TYLENOL 1000 MG PO ×2 (05:38→13:14)
[2024-01-30 05:48] VITALS: BMI 35.3
--- NOTE | 2024-01-30 07:57 | W.PN.HOSP.TC ---
Today's Communication/Plan
-
Discharge today
Assessment / Plan
Assessment / Plan
Physical Exam
General: Not in acute distress
HEENT: Normocephalic
Respiratory: no wheezes, limited
Cardiac: S1/S2 and Regular Rhythm, + murmur
GI: Soft and Non Tender. Positive bowel sounds.
Musculoskeletal:less bilateral LE edema.
Skin: Warm and Dry; No Rash
Neuro: AO x 3, he followed commands.
Psych: Calm
Assessment/Plan
Mr. Pedro Mota is a 78 yo man with hx HTN, obesity, DARRON, COPD with chronic respiratory failure on 3L, HLD, HFpEF, GERD, Anxiety, carotid stenosis s/p bilateral CEA presented to the ER with multiple episodes of lightheadedness when going from
a seated to standing position, prior to arrival. He was started on antibiotics for LLE cellulitis and is found to be volume overloaded on exam.
#Pre-Syncope
#Orthostatic Hypotension
-Patient clearly volume overloaded on exam
-PRN midodrine to c/w diuretic Tx.
-PT/OT
# Acute on Chronic hypercapnic respiratory failure likely due to obesity hypoventilation syndrome/obstructive sleep apnea. CT chest : no PE
Non compliance with C pap Tx.
Per pulmonary: end-stage COPD with multiple emergency room visits and hospitalizations
Chronic lower extremity edema
Acute on chronic Heart Failure with reduced ejection fraction
-TTE 07/28 with EF 60-65%, now Echocardiogram 20-25%/mild concentric left ventricular hypertrophy. Global hypokinesis. Stage I diastolic dysfunction. Normal right ventricular size and function. Significantly reduced ejection fraction
compared to 2017
-s/p Lasix 60mg IV in the ER, s/p IV Lasix 60 mg QD , was recently changed from Lasix to Bumex oral as outpatient. cardiology started him back on Bumex.
- Daily weight.
-Per cardiology, R and L cardiac cath 01/24 showed mild CAD, normal filling pressure, evidence of diastolic dysfunction, preserved cardiac index. Recommend to consider 97.2 kg of the dry weight. Aggressive primary prevention with high-dose/high
potency statin therapy, continue to follow with internet marketing specialist.
-cardiology consulted, appreciate their evaluation and recommendations
# High MCV
-Normal Vitamin B12, Folate. Possible underlying BM disease. Normal TSH, no hx of celiac disease. Normal LFT.
# Hypokalemia, replaced
# Suspected left lower Ext cellulitis on admission
#Chronic lower extremity edema
#Chronic Lymphedema
-No fever, no leukocytosis, no tenderness, stopped IV Ancef ( he received 4 days of IV Abx)
#Acute on Chronic Heart failure with reduced ejection fraction (LVEF 20-25%)
Echocardiogram 20-25%/mild concentric left ventricular hypertrophy. Global hypokinesis. Stage I diastolic dysfunction. Normal right ventricular size and function. MR. Significantly reduced ejection fraction compared to 2017.
Bumex 2 mg daily
Continue metoprolol succinate 25 mg daily.
Contracture alkalosis, started on Diamox then stopped -- will not continue Diamox on discharge (discussed this with pulmonary on-call physician today, who is in agreement)
#Bifascicular Block - RBBB/LAFB
#Prolonged QTc on Electrocardiogram
#COPD with chronic hypoxemic respiratory failure on 3 L on ANORO
#Chronic hypercapnic respiratory failure likely due to obesity hypoventilation syndrome/obstructive sleep apnea.
-NETWORK SUPPORT ANALYST inhalers
-I spoke with on-call pulmonary physician today, and she said there is no need to repeat ABG at this time
-Continue BiPAP/noninvasive ventilation therapy (as per pulmonary), follow-up with pulmonary
-Aspiration precautions
- Appreciate pulmonary input. Recommend outpatient pulmonary follow-up.
#Hyperlipidemia
-NETWORK SUPPORT ANALYST statin
#Anxiety/Depression
-NETWORK SUPPORT ANALYST Bupropion BID, Duloxetine
#GERD
#Carotid Stenosis s/p bilateral CEA
-patient states he is allergic to aspirin, he was on Plavix in past
-NETWORK SUPPORT ANALYST statin
-Carotid ultrasound : No significant carotid plaque is identified bilaterally.
-Follow-up with vascular surgery and PCP outpatient
#Obesity
#Anxiety/Depression
DVT Prophylaxis: Lovenox subQ
DNR - discussed on admission
More than 30 minutes spent in discharge including
Final examination of the patient
Summarizing hospital stay
Instructions for continuing care to all relevant caregivers
Preparation of discharge records, prescriptions, and referral forms
Total time spent (in minutes): 38
Anticipated Discharge: Today
Subjective/Interval History
-
Date of Service: January 30, 2024
Patient was seen and examined. He denied chest pain, shortness of breath, or any pain or swelling in his legs. He denied any other complaints.
Objective Data
-
Labs:
Laboratory Results
01/30/24
06:00
WBC Pending
Hgb Pending
Hct Pending
Plt Count Pending
Sodium Pending
Potassium Pending
Chloride Pending
Carbon Dioxide Pending
BUN Pending
Creatinine Pending
Glucose Pending
Calcium Pending
Vital Signs:
Vital Signs
Temp Pulse Resp BP Pulse Ox
97.3 F 51 18 114/62 93
01/29/24 23:25 01/29/24 23:25 01/29/24 23:25 01/29/24 23:25 01/29/24 23:25
I&O
01/29/24 01/30/24 01/31/24
06:59 06:59 06:59
Intake Total 720 / 720 1200 / 1200
Output Total 1015 / 1015 650 / 650
Balance -295 / -295 550 / 550
[2024-01-30] MEDS: STRIVERDI RESPIMAT 2 PUFF INH (08:03)
[2024-01-30] MEDS: SPIRIVA RESPIMAT 2.5 MCG 2 PUFF INH (08:03)
[2024-01-30 08:05] VITALS: BP 104/47
[2024-01-30 08:58] LABS: Hematocrit 41.6 % (39.0-52.0); Hemoglobin 12.5 g/dL (13.0-18.0); Mean Corpuscular Hgb 30.8 pg (27.0-31.0); Mean Corpuscular Volume 102.5 fL (80.0-94.0); Mean Platelet Volume 11.6 fL (7.4-10.4); Platelet Count 151 10^3/uL (130-400); Red Blood Cell Count 4.06 10^6/uL (4.70-6.10); Red Cell Dist. Width 13.4 % (11.5-14.5)
[2024-01-30] MEDS: BUMEX 2 MG PO (09:20)
[2024-01-30] MEDS: CYMBALTA DELAYED RELEASE 20 MG PO (09:20)
[2024-01-30] MEDS: KLOR-CON 20 MEQ PO (09:20)
[2024-01-30] MEDS: HYDROPHOR 1 APPLIC TOPICAL (09:20)
[2024-01-30] MEDS: CRESTOR 20 MG PO (09:20)
[2024-01-30] MEDS: TOPROL XL 25 MG PO (09:20)
[2024-01-30] MEDS: WELLBUTRIN REGULAR RELEASE 100 MG PO (09:20)
[2024-01-30 09:43] LABS: Blood Urea Nitrogen 18 mg/dl (9-20); Calcium 8.9 mg/dl (8.4-10.2); Chloride 89 mmol/L (98-107); Estimated Creatinine Clearance 58 ml/min; Glucose 92 mg/dl (70-99); Potassium 4.1 mmol/L (3.5-5.1); Sodium 140 mmol/L (135-145); eGFR > 60.00
[2024-01-30 09:48] VITALS: BMI 35.3
[2024-01-30 09:54] LABS: Carbon Dioxide 40 mmol/L (22-30)
--- NOTE | 2024-01-30 10:57 | CM ---
Addendum entered by Ayah Vega 01/30/24 12:51:
Patient scheduled for 2:00 p.m. transport.
Original Note:
CM reviewed chart, met with patient, agreeable to discharge to [facility]. IMM reviewed, verbally agrees, placed in chart. CM spoke with patients friend, Connor, also agreeable to [facility]. Patient will require Covid test prior to discharge,
will require ambulance transport. CM will continue to follow for all discharge planning needs.
Plan; [facility]
Report: [phone]
[2024-01-30 11:20] LABS: COVID-19 Antigen Negative (Negative)
--- NOTE | 2024-01-31 09:31 | W.HF.CON ---
Heart Failure
- LV Function
Left ventricular function study result: LV Ejection fraction </= 35%
Ejection Fraction Percentage: 20-25
- ARNI
Patient already on ARNI: No
Heart Failure ARNI Contraindication: Hypotension
- ACEI/ARB
Patient already on ACEI/ARB: No
Heart Failure ACEI/ARB Contraindication: Hypotension
- Beta Tonya
Patient already on Evidence Based Beta Tonya: Yes
- Mineralocorticord Receptor Antagonist
Patient already on MRA: No
Heart Failure MRA Contraindication: Hypotension
- SGLT-2 Inhibitor
Patient already on SGLT-2 Inhibitor: No
Heart Failure SGLT-2 Inhibitor Contraindication: Patient Refusal
- NYHA CHF Classification
NYHA CHF Classification Level: Class III - Symptoms w/ min exertion, interferes w/ nml daily activity (COPD)
- ACC/AHA Stage
ACC/AHA Stage: Stage C: Symptomatic Heart Failure
== END 2024-01-30 14:19 | DRG 286 ==
LOC: 4 WEST ACU 22:08
PROVIDERS: Emergency Medicine; Internal Medicine; Internal Medicine Cardiovascular Disease; Internal Medicine Critical Care Medicine; Nurse Practitioner Adult Health; ADMITTING PHYSICIAN Student in an Organized Health Care Education/Training Program; ATTENDING PHYSICIAN Hospitalist; CONSULT PHYSICIAN Internal Medicine Cardiovascular Disease; CONSULT PHYSICIAN Internal Medicine Critical Care Medicine; EMERGENCY PHYSICIAN Emergency Medicine; FAMILY PHYSICIAN Internal Medicine
PROC: 4A023N8 Measurement of Cardiac Sampling and Pressure, Bilateral, Percutaneous Approach (ICD-10-PCS; 2024-01-19)
PROC: B2111ZZ Fluoroscopy of Multiple Coronary Arteries using Low Osmolar Contrast (ICD-10-PCS; 2024-01-19)
PROC: 5A09357 Assistance with Respiratory Ventilation, Less than 24 Consecutive Hours, Continuous Positive Airway Pressure (ICD-10-PCS; 2024-01-22)
PROC: 5A09457 Assistance with Respiratory Ventilation, 24-96 Consecutive Hours, Continuous Positive Airway Pressure (ICD-10-PCS; 2024-01-26)
DX: I11.0 Hypertensive heart disease with heart failure (principal); I50.43 Acute on chronic combined systolic (congestive) and diastolic (congestive) heart failure; J96.21 Acute and chronic respiratory failure with hypoxia; J96.22 Acute and chronic respiratory failure with hypercapnia; E66.2 Morbid (severe) obesity with alveolar hypoventilation; E87.3 Alkalosis; I45.2 Bifascicular block; L03.116 Cellulitis of left lower limb; J98.11 Atelectasis; F32.A Depression, unspecified; I65.23 Occlusion and stenosis of bilateral carotid arteries; J44.9 Chronic obstructive pulmonary disease, unspecified; Z66 Do not resuscitate; Z99.81 Dependence on supplemental oxygen; E78.00 Pure hypercholesterolemia, unspecified; F41.9 Anxiety disorder, unspecified; G89.29 Other chronic pain; I25.10 Atherosclerotic heart disease of native coronary artery without angina pectoris; I42.9 Cardiomyopathy, unspecified; I89.0 Lymphedema, not elsewhere classified; K21.00 Gastro-esophageal reflux disease with esophagitis, without bleeding; M19.90 Unspecified osteoarthritis, unspecified site; M48.00 Spinal stenosis, site unspecified; M79.7 Fibromyalgia; E87.6 Hypokalemia; Z79.899 Other long term (current) drug therapy; Z87.891 Personal history of nicotine dependence; Z88.6 Allergy status to analgesic agent
CPT/HCPCS: 36600; 71046; 71275; 80048; 80053; 82607; 82746; 82805; 83735; 83880; 84443; 84484; 85025; 85027; 87070; 87205; 87811; 93005; 93306; 93460; 93880; 93971; 94640; 94660; 96374; 96375; 97110; 97116; 97163; 97167; 97530; 97535; 99285; C1894; Q9967